=== PATIENT | male | born 1960 | race Caucasian/White ===

== ENCOUNTER 2022-11-28 17:57 | Outpatient (RCR) | payer OTHER, SELFPAY | END 2022-12-23 23:59 | disposition home or self-care (01) | LOC: MM 17:57 | PROVIDERS: PCP Internal Medicine; Visit Provider Internal Medicine | DX: Z51.81 Encounter for therapeutic drug level monitoring (principal); Z79.01 Long term (current) use of anticoagulants ==

== ENCOUNTER 2022-12-11 10:38 | Emergency (ER) | payer OTHER, SELFPAY ==
[2022-12-11 10:43] VITALS: BP 168/90; PULSE 70; RESP 20; TEMP 37.1; O2SAT 95; BMI 38.4
--- NOTE | 2022-12-11 10:49 | ED.BACK1 ---
HPI - Back Pain/Injury General Chief Complaint: Back Pain/Injury Stated Complaint: LOWER BACK INJURY Time Seen by Provider: 12/11/22 10:49 Source: patient Mode of arrival: walk-in History of Present Illness HPI Narrative: patient's here with pain in his lower lumbar area. He had a fall down is on stairs at home on Monday. He said he did not have any discomfort at all on Monday. Today he said when he got out of bed he had severe pain in his lower lumbar area in the midline that radiates into his buttock but no further. There is no bowel or bladder incontinence. There is no loss of feeling. He's not had previous back surgery or degenerative changes. He did not take any medication. He does have a local doctor. He does not have any other pain or discomfort today. Related Data Home Medications Medication Instructions Recorded Confirmed alprazolam 1 mg tablet 0.5 mg PO BID 12/11/22 12/11/22 amlodipine 10 mg tablet 10 mg PO DAILY 12/11/22 12/11/22 citalopram 40 mg tablet 40 mg PO DAILY 12/11/22 12/11/22 clindamycin phosphate 1 % topical 1 applic topical DAILY 12/11/22 12/11/22 solution fenofibrate nanocrystallized 145 145 mg PO DAILY 12/11/22 12/11/22 mg tablet losartan 50 mg tablet 50 mg PO DAILY 12/11/22 12/11/22 metoprolol tartrate 100 mg tablet 100 mg PO Q12H 12/11/22 12/11/22 simvastatin 80 mg tablet 80 mg PO DAILY 12/11/22 12/11/22 tamsulosin 0.4 mg capsule 0.4 mg PO Q24H 12/11/22 12/11/22 warfarin 7.5 mg tablet 7.5 mg PO DAILY 12/11/22 12/11/22 Allergies Allergy/AdvReac Type Severity Reaction Status Date / Time IV CONTRAST Allergy Severe Uncoded 12/11/22 10:48 Exam Narrative Exam Narrative: well-hydrated large showman weighs approximately 260 pounds. Moves about cautiously but is able to sit bedside to complete examination. He's awake alert HEENT shows no evidence of craniofacial trauma or injury cervical spine range of motion normal. Chest shows no chest wall tenderness or rib tenderness to palpation. respiratory pattern rate are normal lungs are clear. Back and pelvis inspection shows no bruising contusion or ecchymosis. No evidence of shingles or skin lesions. Extremities show no hematomas or bruises or tenderness to palpation. There are Neuro deep tendon reflexes at patella are two over four bilaterally. Extensor hallucis longus function is normal bilaterally. Achilles jerk reflexes normal and symmetrical bilaterally. Negative straight leg raising. Constitutional Vital Signs - 24 hr 12/11/22 10:43 Temperature 98.7 F Pulse Rate [Monitor] 70 Respiratory Rate 20 Blood Pressure [Right Arm] 168/90 H Pulse Oximetry 95 Oxygen Delivery Method Room Air Course Vital Signs Vital signs: Vital Signs Temperature 98.7 F 12/11/22 10:43 Pulse Rate 70 12/11/22 10:43 Respiratory Rate 20 12/11/22 10:43 Blood Pressure 168/90 H 12/11/22 10:43 Pulse Oximetry 95 12/11/22 10:43 Oxygen Delivery Method Room Air 12/11/22 10:43 Temperature 98.7 F 12/11/22 10:43 Pulse Rate 70 12/11/22 10:43 Respiratory Rate 20 12/11/22 10:43 Blood Pressure 168/90 H 12/11/22 10:43 Pulse Oximetry 95 12/11/22 10:43 Oxygen Delivery Method Room Air 12/11/22 10:43 MDM - Back Pain/Injury MDM Narrative Medical decision making narrative: patient's CT scan does not show any acute fracture or lytic lesions. Findings are consistent with degenerative disc disease in his lower lumbar area. He'll be placed on NSAIDs and muscle relaxants following up with primary care doctor Discharge Plan Discharge Chief Complaint: Back Pain/Injury Clinical Impression: Strain of lumbar region Patient Disposition: Home, Self-Care Time of Disposition Decision: 11:55 Prescriptions / Home Meds: No Action alprazolam 1 mg tablet 0.5 mg PO BID amlodipine 10 mg tablet 10 mg PO DAILY citalopram 40 mg tablet 40 mg PO DAILY clindamycin phosphate 1 % solution 1 applic topical DAILY fenofibrate nanocrystallized 145 mg tablet 145 mg PO DAILY losartan 50 mg tablet 50 mg PO DAILY metoprolol tartrate 100 mg tablet 100 mg PO Q12H simvastatin 80 mg tablet 80 mg PO DAILY tamsulosin 0.4 mg capsule 0.4 mg PO Q24H warfarin 7.5 mg tablet 7.5 mg PO DAILY Stand Alone Forms: Portal Instructions Referrals: Shaikh Galvin MD [Primary Care Provider] - 1 week
--- NOTE | 2022-12-11 10:50 | CT_ITS ---
The [address] [address] Patient Name: DRAKE MARTINEZ MRN: [id number] date: 1960 Sex: M Assigned Patient Location: ER Current Patient Location: ED.MAIN Accession/Order Number: [id number] Exam Date: 12/11/2022 11:05 Report Date: 12/11/2022 11:40 At the request of: KERRY PICKARD Procedure: CT lumbar spine wo con EXAMINATION: CT lumbar spine wo con CLINICAL HISTORY: Back pain status post fall 4 days ago TECHNIQUE: Spiral, high resolution axial images were obtained from the thoracolumbar junction to the sacrum with sagittal and coronal planar reconstructions. COMPARISON: None. RESULT: LUMBAR: Counting reference: Lumbosacral junction. For the purposes of this report, L4-5 is considered the level of the iliac crest and assume there are 5 lumbar-type vertebrae. Anatomic variant: None. Alignment: Lumbar lordosis is maintained. Vertebral body heights are maintained. Mild loss of disc is at L5-S1, otherwise disc spaces are within normal limits. Bone marrow / fracture: No evidence of a lytic or blastic process in the visualized spine. No evidence of acute or chronic fracture. Paraspinal soft tissues: The paraspinal soft tissues planes are maintained. Multilevel degenerative changes, most prominent at L4-L5 and L5-S1. Sacrum and iliac wings: The visualized sacrum and iliac wings are within normal limits. Diffuse subcutaneous edema.. IMPRESSION: No acute fracture or traumatic subluxation. Degenerative changes most prominent at L4-L5 and L5-S1. Electronically authenticated by: TIANA THORNTON Date: 12/11/2022 11:40
[2022-12-11] MEDS: HYDROMORPHONE HCL 1 MG/ML CARTRIDGE IM (12:11)
[2022-12-11 12:18] VITALS: BP 155/96
== END 2022-12-11 12:20 | disposition home or self-care (01) ==
PROVIDERS: Emergency Provider Emergency Medicine Emergency Medical Services; PCP Internal Medicine
DX: S39.012A Strain of muscle, fascia and tendon of lower back, initial encounter (principal); W10.9XXA Fall (on) (from) unspecified stairs and steps, initial encounter; Z79.899 Other long term (current) drug therapy; Z79.01 Long term (current) use of anticoagulants
CPT/HCPCS: 72131; 96372; 99285; J1170

== ENCOUNTER 2022-12-28 15:21 | Outpatient (RCR) | payer OTHER, SELFPAY | END 2023-01-23 16:47 | disposition home or self-care (01) | LOC: MM 15:21 | PROVIDERS: PCP Internal Medicine; Visit Provider Internal Medicine | DX: Z51.81 Encounter for therapeutic drug level monitoring (principal); Z79.01 Long term (current) use of anticoagulants ==

== ENCOUNTER 2023-01-09 12:29 | Outpatient (OUT) | payer OTHER, SELFPAY ==
--- NOTE | 2023-01-09 13:30 | MR_ITS ---
[address] [address] Patient Name: DRAKE MARTINEZ MRN: [id number] date: 1960 Sex: M Assigned Patient Location: MRI Current Patient Location: MRI Accession/Order Number: [id number] Exam Date: 01/09/2023 13:30 Report Date: 01/09/2023 20:14 At the request of: CHOLO RUDD Procedure: MR lumbar spine wo con EXAMINATION: MR lumbar spine wo con HISTORY: Low back pain M54.50 COMPARISON: No relevant comparison available. TECHNIQUE: A variety of imaging planes and parameters were utilized for visualization of suspected pathology. FINDINGS: For the purposes of numbering, sagittal T2 image # 8 extends from the T11 vertebral body superiorly to the S3 level inferiorly. PARASPINAL AREA: Normal with no visible mass. BONES: Normal alignment with no acute fracture or spondylolisthesis. Areas of signal abnormality L4 and L5 vertebral bodies. Hemangiomas are suspected. CORD/CAUDA EQUINA: Normal caliber, contour, and signal intensity. There is heterogeneous appearance of the thecal sac, indeterminate. DISC LEVELS: 12-L1: No significant disc/facet abnormality, spinal stenosis, or foraminal stenosis. L1-L2: Early degenerative disc disease is present without focal protrusion or neural impingement. L2-L3: Early degenerative disc disease is present without focal protrusion or neural impingement. L3-L4: Early degenerative disc disease is present without focal protrusion or neural impingement. L4-L5: Disc desiccation. Moderate facet osteoarthropathy. No central or foraminal stenosis L5-S1: Moderate disc space narrowing and disc desiccation. Posterior central disc herniation the protrusion type extending posteriorly up to 3.5 mm. Bilateral facet osteoarthropathy. No central canal stenosis. Mild right foraminal stenosis MR/MR lumbar spine wo con IMPRESSION: Discogenic changes most significant at L5-S1 where there is mild right foraminal stenosis Electronically authenticated by: TOBIAS BALDERAS Date: 01/09/2023 20:14
== END 2023-01-09 12:30 | disposition home or self-care (01) ==
LOC: MRI 12:30
PROVIDERS: PCP Family Medicine; Visit Provider Family Medicine
DX: M54.50 Low back pain, unspecified (principal); M48.061 Spinal stenosis, lumbar region without neurogenic claudication
CPT/HCPCS: 72148

== ENCOUNTER 2023-01-24 09:00 | Outpatient (RCR) | payer OTHER, SELFPAY | END 2023-02-23 17:18 | disposition home or self-care (01) | LOC: MM 09:00 | PROVIDERS: PCP Family Medicine; Visit Provider Internal Medicine | DX: Z51.81 Encounter for therapeutic drug level monitoring (principal); Z79.01 Long term (current) use of anticoagulants | CPT/HCPCS: 85610; G0463 ==

== ENCOUNTER 2023-02-11 20:38 | Emergency (ER) | payer OTHER, SELFPAY ==
--- NOTE | 2023-02-11 20:30 | ECG_ITS ---
The [facility] Test Date: 2023-02-11 Pat Name: DRAKE MARTINEZ Department: Room: - Gender: Male [employer]ive[employer]: : 1960 Requested By: CHOLO RUDD Order Number: [id number] Reading MD: CHOLO RUDD Measurements Intervals [place] Rate: 56 P: 30 SC: 198 QRS: 43 QRSD: 86 T: 41 QT: 418 QTc: 408 Interpretive Statements 1100 Sinus rhythm 3114 Cannot rule out anterior myocardial infarction, age undetermined 8102 Low QRS voltage in chest leads 9150 abnormal ECG No previous ECG available for comparison Electronically Signed On 02-15-2023 6:59:45 EDT by CHOLO RUDD
[2023-02-11 20:42] VITALS: BP 155/83; PULSE 62; RESP 18; TEMP 36.4; O2SAT 96; BMI 39.9
--- NOTE | 2023-02-11 21:06 | ED.LOWEXI1 ---
HPI - Extremity Injury (Lower) General Chief Complaint: Extremity Injury, Lower Stated Complaint: Bilateral Edema Legs Time Seen by Provider: 02/11/23 21:06 Source: patient Mode of arrival: walk-in Limitations: no limitations Related Data Home Medications Medication Instructions Recorded Confirmed alprazolam 1 mg tablet 0.5 mg PO BID 12/11/22 02/11/23 amlodipine 10 mg tablet 10 mg PO DAILY 12/11/22 02/11/23 citalopram 40 mg tablet 40 mg PO DAILY 12/11/22 02/11/23 clindamycin phosphate 1 % topical 1 applic topical DAILY 12/11/22 02/11/23 solution fenofibrate nanocrystallized 145 145 mg PO DAILY 12/11/22 02/11/23 mg tablet losartan 50 mg tablet 50 mg PO DAILY 12/11/22 02/11/23 metoprolol tartrate 100 mg tablet 100 mg PO Q12H 12/11/22 02/11/23 simvastatin 80 mg tablet 80 mg PO DAILY 12/11/22 02/11/23 tamsulosin 0.4 mg capsule 0.4 mg PO Q24H 12/11/22 02/11/23 warfarin 7.5 mg tablet 7.5 mg PO DAILY 12/11/22 02/11/23 Allergies Allergy/AdvReac Type Severity Reaction Status Date / Time IV CONTRAST Allergy Severe Uncoded 02/11/23 20:46 PFSH PFSH Social History Smoking status: Former smoker Exam Constitutional Vital Signs, click to edit/add: Last Vital Signs Temp 97.6 F 02/11/23 20:42 Pulse 62 02/11/23 20:42 Resp 18 02/11/23 20:42 BP 155/83 H 02/11/23 20:42 Pulse Ox 96 02/11/23 20:42 O2 Del Method Room Air 02/11/23 20:42 Course Vital Signs Vital signs: Vital Signs Temperature 97.6 F 02/11/23 20:42 Pulse Rate 62 02/11/23 20:42 Respiratory Rate 18 02/11/23 20:42 Blood Pressure 155/83 H 02/11/23 20:42 Pulse Oximetry 96 02/11/23 20:42 Oxygen Delivery Method Room Air 02/11/23 20:42 Temperature 97.6 F 02/11/23 20:42 Pulse Rate 62 02/11/23 20:42 Respiratory Rate 18 02/11/23 20:42 Blood Pressure 155/83 H 02/11/23 20:42 Pulse Oximetry 96 02/11/23 20:42 Oxygen Delivery Method Room Air 02/11/23 20:42 Discharge Plan Discharge Chief Complaint: Extremity Injury, Lower Prescriptions / Home Meds: No Action alprazolam 1 mg tablet 0.5 mg PO BID amlodipine 10 mg tablet 10 mg PO DAILY citalopram 40 mg tablet 40 mg PO DAILY clindamycin phosphate 1 % solution 1 applic topical DAILY fenofibrate nanocrystallized 145 mg tablet 145 mg PO DAILY losartan 50 mg tablet 50 mg PO DAILY metoprolol tartrate 100 mg tablet 100 mg PO Q12H simvastatin 80 mg tablet 80 mg PO DAILY tamsulosin 0.4 mg capsule 0.4 mg PO Q24H warfarin 7.5 mg tablet 7.5 mg PO DAILY Referrals: Jonatan Ponce MD [Primary Care Provider] - 1 week
[2023-02-11 21:13] VITALS: RESP 16
[2023-02-11 21:32] LABS: Prothrombin Time 31.8 sec (9.0-11.6)
[2023-02-11 21:44] LABS: Alanine Aminotransferase 9 U/L (16-63); Albumin Globulin Ratio 1.3; Albumin Level 3.8 g/dL (3.4-5.0); Alkaline Phosphatase 51 U/L (46-116); Anion Gap 7.9; Aspartate Amino Transferase 17 U/L (15-37); BUN Creatinine Ratio 14.3; Bilirubin Total 0.3 mg/dL (0.2-1.0); Calcium 8.6 mg/dL (8.5-10.1); Carbon Dioxide 31.5 mmol/L (21.0-32.0); Chloride 102 mmol/L (98-107); Estimated GFR (African America >60 (>=60); Estimated GFR (Non-African Ame 54 (>=60); Glucose 139 mg/dL (74-106); Potassium 3.4 mmol/L (3.5-5.1); Sodium 138 mmol/L (136-145); Total Protein 6.8 g/dL (6.4-8.2)
[2023-02-11 21:49] LABS: Basophils Percent Auto 0.4 % (0.2-2.0); Eosinophils Absolute Auto 0.2 10^3/uL (0.0-0.7); Eosinophils Percent Auto 3.6 % (0.9-7.0); Hemoglobin 13.7 g/dL (14.0-18.0); Immature Granulocytes Abs Auto 0.02 10^3/uL (0.00-0.03); Immature Granulocytes Pct Auto 0.4 % (0.0-0.5); Lymphocytes Absolute Auto 1.5 10^3/uL (1.2-3.8); Lymphocytes Percent Auto 32.1 % (20.5-60.0); Mean Corpuscular HGB Conc 34.3 g/dL (29.9-35.2); Mean Corpuscular Hemoglobin 30.6 pg (25.9-34.0); Mean Corpuscular Volume 89.5 fL (80.0-94.0); Mean Platelet Volume 9.6 fL (9.5-13.5); Monocytes Absolute Auto 0.7 10^3/uL (0.3-0.8); Monocytes Percent Auto 14.3 % (1.7-12.0); Neutrophils Absolute Auto 2.3 10^3/uL (1.4-6.5); Neutrophils Percent Auto 49.2 % (43.0-75.0); Platelet Count 227 10^3/uL (150-450); Red Blood Count 4.47 10^6/uL (4.70-6.10); Red Cell Distribution Width 13.4 % (11.0-15.0); White Blood Count 4.7 10^3/uL (4.0-11.0)
--- NOTE | 2023-02-11 22:04 | ED_ITS ---
HPI - General Adult General Chief complaint: Extremity Injury, Lower Stated complaint: Bilateral Edema Legs Time Seen by Provider: 02/11/23 21:06 Source: patient Mode of arrival: walk-in Limitations: no limitations History of Present Illness HPI narrative: Versus emergency Department complaining of bilateral lower extremity edema. He states she's had this issue for several months but the last 3 weeks has gotten yvonne harris. He states 3 days ago he started noticing a rash to bilateral medial ankles. The rash is now expanding proximally. He denies any fever, chills. He denies any trauma. He denies any pain. He states they have had anything like this before. Patient is on Coumadin. Last INR was checked was 2 days ago when he was fine. Patient Denies any chest, shortness of breath. He denies any cough, fever. Patient denies being sick recently with any nausea, vomiting, diarrhea, constipation, or abdominal pain. He denies any flank pain, hematuria, dysuria. Related Data Home Medications Medication Instructions Recorded Confirmed alprazolam 1 mg tablet 0.5 mg PO BID 12/11/22 02/11/23 amlodipine 10 mg tablet 10 mg PO DAILY 12/11/22 02/11/23 citalopram 40 mg tablet 40 mg PO DAILY 12/11/22 02/11/23 clindamycin phosphate 1 % topical 1 applic topical DAILY 12/11/22 02/11/23 solution fenofibrate nanocrystallized 145 145 mg PO DAILY 12/11/22 02/11/23 mg tablet losartan 50 mg tablet 50 mg PO DAILY 12/11/22 02/11/23 metoprolol tartrate 100 mg tablet 100 mg PO Q12H 12/11/22 02/11/23 simvastatin 80 mg tablet 80 mg PO DAILY 12/11/22 02/11/23 tamsulosin 0.4 mg capsule 0.4 mg PO Q24H 12/11/22 02/11/23 warfarin 7.5 mg tablet 7.5 mg PO DAILY 12/11/22 02/11/23 Previous Rx's Medication Instructions Recorded cephalexin 500 mg capsule 500 mg PO TID 7 days #21 caps 02/11/23 furosemide 20 mg tablet (Lasix) 20 mg PO DAILY #3 tabs 02/11/23 Allergies Allergy/AdvReac Type Severity Reaction Status Date / Time IV CONTRAST Allergy Severe Uncoded 02/11/23 20:46 Review of Systems ROS Status of ROS 10 or more systems reviewed and unremarkable except as noted in history and below [facility] Social History Smoking status: Former smoker Exam Narrative Exam Narrative: Nurses notes and vital signs reviewed and patient is not hypoxic. General: Nontoxic, Well-appearing and in no apparent distress. Skin: Warm, dry, no pallor noted. No Rash Head: Normocephalic, atraumatic. Neck: Supple, non-tender. Eye: Pupils are equal, round and EOMI. No scleral icterus. Ears, Nose, Mouth, and Throat: TM clear, no posterior oropharynx erythema or nasal mucosal hypertrophy, uvula is mid-line Oral mucosa is moist Cardiovascular: Regular Rate and Rhythm without murmur, gallop or rub. Respiratory: No accessory muscle use or respiratory distress. Lungs are clear to auscultation, no wheezing, rales or rhonchi Chest Wall: no tenderness Back: No midline thoracic or lumbar vertebral tenderness. No CVA tenderness Musculoskeletal: normal ROM, no calf or popliteal tenderness, +2 Bilateral lower extremity edema/swelling,Bilateral erythema to the medial aspect of bilateral lower extremities. erythematous and warm rash, blanching, nonbullous. DP +2, tuberculosis +2, capillary refill iis brisk. GI: Abdomen is soft, non-distended. Normal bowel sounds. No masses appreciated. No tenderness to palpation. No rebound, guarding, or rigidity noted. Neurological: A&O x4. No cranial nerve dysfunction observed. No truncal ataxia. Moves all extremities. Sensation intact. Psychiatric: Cooperative and interactive. Normal mood and affect. Constitutional Vital Signs, click to edit/add: Last Vital Signs Temp 97.6 F 02/11/23 20:42 Pulse 62 02/11/23 20:42 Resp 16 02/11/23 21:13 BP 155/83 H 02/11/23 20:42 Pulse Ox 96 02/11/23 20:42 O2 Del Method Room Air 02/11/23 20:42 Course Vital Signs Vital signs: Vital Signs Temperature 97.6 F 02/11/23 20:42 Pulse Rate 62 02/11/23 20:42 Respiratory Rate 18 02/11/23 20:42 Blood Pressure 155/83 H 02/11/23 20:42 Pulse Oximetry 96 02/11/23 20:42 Oxygen Delivery Method Room Air 02/11/23 20:42 Temperature 97.6 F 02/11/23 20:42 Pulse Rate 62 02/11/23 20:42 Respiratory Rate 16 02/11/23 21:13 Blood Pressure 155/83 H 02/11/23 20:42 Pulse Oximetry 96 02/11/23 20:42 Oxygen Delivery Method Room Air 02/11/23 20:42 Medical Decision Making MDM Narrative Medical decision making narrative: Labs studies were done. Patient given a prescription for 3 days of Lasix, and Keflex. He is advised to monitor his INR is 2 days after starting on the antibiotic. Patient is advised to use compression stockings. He is nontoxic, stable for outpatient follow-up and treatment. At this time the patient is without objective evidence of an acute process requiring hospitalization or inpatient management. The patient has remained hemodynamically stable. No additional indication for emergent studies at this time. I answered all questions. Discussed discharge instructions including standard anticipatory guidance and what should prompt a return to the emergency department, including if they get worse are not getting better or develops any new or concerning symptoms. I've given them specific time frame in which to follow-up, and who to follow-up with. The patient demonstrates understanding. Patient is nontoxic and stable for discharge with outpatient follow-up. This note was created with the assistance of a speech recognition program. Although the intention is to generate documents that actually reflects the content of the visit, no guarantees can be provided that every mistake has been identified and corrected by editing. Lab Data Lab results reviewed: Yes I reviewed the patient's lab results Labs: Lab Results 02/11/23 Range/Units 20:50 WBC 4.7 (4.0-11.0) 10^3/uL RBC 4.47 L (4.70-6.10) 10^6/uL Hgb 13.7 L (14.0-18.0) g/dL Hct 40.0 L (42.0-54.0) % MCV 89.5 (80.0-94.0) fL MCH 30.6 (25.9-34.0) pg MCHC 34.3 (29.9-35.2) g/dL RDW 13.4 (11.0-15.0) % Plt Count 227 (150-450) 10^3/uL MPV 9.6 (9.5-13.5) fL Neut % (Auto) 49.2 (43.0-75.0) % Lymph % (Auto) 32.1 (20.5-60.0) % [place] % (Auto) 14.3 H (1.7-12.0) % Eos % (Auto) 3.6 (0.9-7.0) % Baso % (Auto) 0.4 (0.2-2.0) % Neut # (Auto) 2.3 (1.4-6.5) 10^3/uL Lymph # (Auto) 1.5 (1.2-3.8) 10^3/uL [place] # (Auto) 0.7 (0.3-0.8) 10^3/uL Eos # (Auto) 0.2 (0.0-0.7) 10^3/uL Baso # (Auto) 0.0 (0.0-0.1) 10^3/uL Abs Immat Gran (auto) 0.02 (0.00-0.03) 10^3/uL Imm/Tot Granulo (auto) 0.4 (0.0-0.5) % PT 31.8 H (9.0-11.6) sec INR 3.20 Sodium 138 (136-145) mmol/L Potassium 3.4 L (3.5-5.1) mmol/L Chloride 102 (98-107) mmol/L Carbon Dioxide 31.5 (21.0-32.0) mmol/L Anion Gap 7.9 BUN 19.0 H (7.0-18.0) mg/dL Creatinine 1.33 H (0.70-1.30) mg/dL Est GFR ( Amer) >60 (>=60) Est GFR (Non-Af Amer) 54 L (>=60) BUN/Creatinine Ratio 14.3 Glucose 139 H (74-106) mg/dL Calcium 8.6 (8.5-10.1) mg/dL Total Bilirubin 0.3 (0.2-1.0) mg/dL AST 17 (15-37) U/L ALT 9 L (16-63) U/L Alkaline Phosphatase 51 (46-116) U/L NT-Pro-B Natriuret Pep 114.0 (<=900.0) pg/mL Total Protein 6.8 (6.4-8.2) g/dL Albumin 3.8 (3.4-5.0) g/dL Globulin 3.0 g/dL Albumin/Globulin Ratio 1.3 Discharge Plan Discharge Chief Complaint: Extremity Injury, Lower Clinical Impression: Bilateral lower extremity edema, Cellulitis Patient Disposition: Home, Self-Care Time of Disposition Decision: 21:56 Condition: Good Mode of Transportation: Private Vehicle Prescriptions / Home Meds: New furosemide [Lasix] 20 mg tablet 20 mg PO DAILY Qty: 3 0RF cephalexin 500 mg capsule 500 mg PO TID 7 Days Qty: 21 0RF No Action alprazolam 1 mg tablet 0.5 mg PO BID amlodipine 10 mg tablet 10 mg PO DAILY citalopram 40 mg tablet 40 mg PO DAILY clindamycin phosphate 1 % solution 1 applic topical DAILY fenofibrate nanocrystallized 145 mg tablet 145 mg PO DAILY losartan 50 mg tablet 50 mg PO DAILY metoprolol tartrate 100 mg tablet 100 mg PO Q12H simvastatin 80 mg tablet 80 mg PO DAILY tamsulosin 0.4 mg capsule 0.4 mg PO Q24H warfarin 7.5 mg tablet 7.5 mg PO DAILY Instructions: Cellulitis (ED), Leg Edema (ED) Stand Alone Forms: Portal Instructions Referrals: Jonatan Ponce MD [Primary Care Provider] - 1 week
== END 2023-02-11 22:19 | disposition home or self-care (01) ==
PROVIDERS: Emergency Provider Emergency Medicine; PCP Family Medicine
DX: L03.116 Cellulitis of left lower limb (principal); L03.115 Cellulitis of right lower limb; R60.0 Localized edema; Z79.01 Long term (current) use of anticoagulants; Z79.899 Other long term (current) drug therapy; Z87.891 Personal history of nicotine dependence
CPT/HCPCS: 36415; 80053; 83880; 85025; 85610; 93005; 99283

== ENCOUNTER 2023-02-24 08:26 | Outpatient (RCR) | payer OTHER, SELFPAY | END 2023-03-24 16:34 | disposition home or self-care (01) | LOC: MM 08:26 | PROVIDERS: PCP Family Medicine; Visit Provider Internal Medicine | DX: Z51.81 Encounter for therapeutic drug level monitoring (principal); Z79.01 Long term (current) use of anticoagulants | CPT/HCPCS: 85610; G0463 ==

== ENCOUNTER 2023-03-02 09:01 | Outpatient (OUT) | payer OTHER, SELFPAY ==
--- NOTE | 2023-03-02 09:06 | MR_ITS ---
The [address] [address] Patient Name: DRAKE MARTINEZ MRN: [id number] date: 1960 Sex: M Assigned Patient Location: MRI Current Patient Location: MRI Accession/Order Number: [id number] Exam Date: 03/02/2023 09:15 Report Date: 03/02/2023 16:38 At the request of: CHOLO RUDD Procedure: MR lumbar spine w con EXAM: MRI lumbar spine with contrast, 03/02/2023. HISTORY: Abnormality of lumbar spine seen on prior MRI of lumbar spine. Postcontrast imaging was requested. COMPARISON: MRI lumbar spine without contrast, 01/12/2023. TECHNIQUE: Sagittal T1 fat saturation and axial T1 images obtained. Postcontrast axial T1 and sagittal T1 fat saturation images obtained. FINDINGS: There is no pathologic enhancement in the conus medullaris. No pathologic enhancement in the cauda equina. No enhancing lesions in the thecal sac. No epidural space masses or fluid collections. No paraspinal mass. No pathologic enhancement in the osseous structures of the lumbar spine or sacrum. MR/MR lumbar spine w con IMPRESSION: No abnormal enhancement identified in the thecal sac. The findings suggested on the prior exam are related to normal CSF pulsation. There is no pathologic enhancement in the conus medullaris or cauda equina. No enhancing masses. Electronically authenticated by: XIOMARA ESTRADA Date: 03/02/2023 16:38
== END 2023-03-02 09:02 | disposition home or self-care (01) ==
LOC: MRI 09:01
PROVIDERS: PCP Family Medicine; Visit Provider Family Medicine
DX: M54.50 Low back pain, unspecified (principal)
CPT/HCPCS: 72149; A9575

== ENCOUNTER 2023-03-27 02:26 | Outpatient (RCR) | payer OTHER, SELFPAY | END 2023-04-25 17:35 | disposition home or self-care (01) | LOC: MM 02:26 | PROVIDERS: PCP Family Medicine; Visit Provider Internal Medicine | DX: Z51.81 Encounter for therapeutic drug level monitoring (principal); Z79.01 Long term (current) use of anticoagulants | CPT/HCPCS: 85610; G0463 ==

== ENCOUNTER 2023-04-26 00:39 | Outpatient (RCR) | payer OTHER, SELFPAY | END 2023-05-25 16:45 | disposition home or self-care (01) | LOC: MM 00:39 | PROVIDERS: PCP Family Medicine; Visit Provider Internal Medicine | DX: Z51.81 Encounter for therapeutic drug level monitoring (principal); Z79.01 Long term (current) use of anticoagulants | CPT/HCPCS: 85610; G0463 ==

== ENCOUNTER 2023-05-26 09:02 | Outpatient (RCR) | payer OTHER, SELFPAY | END 2023-06-23 15:12 | disposition home or self-care (01) | LOC: MM 09:02 | PROVIDERS: PCP Family Medicine; Visit Provider Internal Medicine | DX: Z51.81 Encounter for therapeutic drug level monitoring (principal); Z79.01 Long term (current) use of anticoagulants; I82.409 Acute embolism and thrombosis of unspecified deep veins of unspecified lower extremity | CPT/HCPCS: 85610; G0463 ==

== ENCOUNTER 2023-06-26 00:45 | Outpatient (RCR) | payer OTHER, SELFPAY | END 2023-07-26 15:57 | disposition home or self-care (01) | LOC: MM 00:45 | PROVIDERS: PCP Family Medicine; Visit Provider Internal Medicine | DX: Z51.81 Encounter for therapeutic drug level monitoring (principal); Z79.01 Long term (current) use of anticoagulants; I82.401 Acute embolism and thrombosis of unspecified deep veins of right lower extremity ==

== ENCOUNTER 2023-07-27 01:31 | Outpatient (RCR) | payer OTHER, SELFPAY | END 2023-08-24 17:10 | disposition home or self-care (01) | LOC: MM 01:31 | PROVIDERS: PCP Family Medicine; Visit Provider Internal Medicine | DX: Z51.81 Encounter for therapeutic drug level monitoring (principal); Z79.01 Long term (current) use of anticoagulants; I82.401 Acute embolism and thrombosis of unspecified deep veins of right lower extremity ==

== ENCOUNTER 2023-08-25 01:04 | Outpatient (RCR) | payer OTHER, SELFPAY | END 2023-09-22 13:02 | disposition home or self-care (01) | LOC: MM 01:04 | PROVIDERS: PCP Family Medicine; Visit Provider Internal Medicine | DX: Z51.81 Encounter for therapeutic drug level monitoring (principal); Z79.01 Long term (current) use of anticoagulants; I82.401 Acute embolism and thrombosis of unspecified deep veins of right lower extremity ==

== ENCOUNTER 2023-08-25 08:32 | Outpatient (OUT) | payer OTHER, SELFPAY ==
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
[2023-08-25 09:49] LABS: Eosinophils Absolute Auto 0.2 10^3/uL (0.0-0.7); Hemoglobin 14.5 g/dL (14.0-18.0); Neutrophils Absolute Auto 3.3 10^3/uL (1.4-6.5); White Blood Count 6.5 10^3/uL (4.0-11.0)
[2023-08-25 10:09] LABS: Estimated Average Glucose 120 mg/dL; Glycohemoglobin A1C 5.8 % (4.5-6.2)
[2023-08-25 10:11] LABS: Basophils Percent Auto 0.5 % (0.2-2.0); Eosinophils Percent Auto 2.6 % (0.9-7.0); Hematocrit 43.7 % (42.0-54.0); Immature Granulocytes Abs Auto 0.02 10^3/uL (0.00-0.03); Immature Granulocytes Pct Auto 0.3 % (0.0-0.5); Lymphocytes Absolute Auto 2.1 10^3/uL (1.2-3.8); Lymphocytes Percent Auto 31.6 % (20.5-60.0); Mean Corpuscular HGB Conc 33.2 g/dL (29.9-35.2); Mean Corpuscular Hemoglobin 30.5 pg (25.9-34.0); Mean Platelet Volume 9.5 fL (9.5-13.5); Monocytes Absolute Auto 0.9 10^3/uL (0.3-0.8); Monocytes Percent Auto 14.3 % (1.7-12.0); Neutrophils Percent Auto 50.7 % (43.0-75.0); Platelet Count 323 10^3/uL (150-450); Red Blood Count 4.75 10^6/uL (4.70-6.10); Red Cell Distribution Width 13.3 % (11.0-15.0)
[2023-08-25 10:52] LABS: Alanine Aminotransferase 23 U/L (16-63); Albumin Globulin Ratio 1.1; Albumin Level 3.6 g/dL (3.4-5.0); Alkaline Phosphatase 47 U/L (46-116); Anion Gap 12.1; Aspartate Amino Transferase 14 U/L (15-37); BUN Creatinine Ratio 21.8; Bilirubin Total 0.3 mg/dL (0.2-1.0); Calcium 9.3 mg/dL (8.5-10.1); Carbon Dioxide 28.8 mmol/L (21.0-32.0); Chloride 107 mmol/L (98-107); Chol HDL Ratio 4.8; Cholesterol 206 mg/dL (<=200); Estimated GFR (African America >60 (>=60); Estimated GFR (Non-African Ame >60 (>=60); Free T3 2.21 pg/mL (2.18-3.98); Globulin 3.4 g/dL; Glucose 102 mg/dL (74-106); HDL Cholesterol 43 mg/dL (40-60); Potassium 3.9 mmol/L (3.5-5.1); Sodium 144 mmol/L (136-145); Thyroid Stimulating Hormone 1.953 uIU/mL (0.358-3.740); Triglycerides 231 mg/dL (<=150); VLDL CHOLESTEROL 46.2 mg/dL
[2023-08-27 11:07] LABS: Insulin 13.8 uIU/mL (2.6-24.9)
[2023-08-28 16:20] LABS: Occult Blood Negative
== END 2023-08-25 08:33 | disposition home or self-care (01) ==
LOC: LAB 08:34
PROVIDERS: PCP Family Medicine; Visit Provider Family Medicine
DX: Z00.00 Encounter for general adult medical examination without abnormal findings (principal); E78.5 Hyperlipidemia, unspecified; R73.09 Other abnormal glucose; Z12.12 Encounter for screening for malignant neoplasm of rectum; E55.9 Vitamin D deficiency, unspecified
CPT/HCPCS: 36415; 80053; 80061; 82306; 83036; 83525; 84436; 84443; 84481; 85025; G0328

== ENCOUNTER 2023-09-25 03:13 | Outpatient (RCR) | payer OTHER, SELFPAY | END 2023-10-24 17:47 | disposition home or self-care (01) | LOC: MM 03:13 | PROVIDERS: PCP Family Medicine; Visit Provider Internal Medicine | DX: Z51.81 Encounter for therapeutic drug level monitoring (principal); Z79.01 Long term (current) use of anticoagulants; I82.401 Acute embolism and thrombosis of unspecified deep veins of right lower extremity ==

== ENCOUNTER 2023-10-25 04:33 | Outpatient (RCR) | payer OTHER, SELFPAY | END 2023-11-24 11:44 | disposition home or self-care (01) | LOC: MM 04:33 | PROVIDERS: PCP Family Medicine; Visit Provider Internal Medicine | DX: Z51.81 Encounter for therapeutic drug level monitoring (principal); Z79.01 Long term (current) use of anticoagulants; I82.401 Acute embolism and thrombosis of unspecified deep veins of right lower extremity | CPT/HCPCS: 85610; G0463 ==

== ENCOUNTER 2023-11-27 00:15 | Outpatient (RCR) | payer OTHER, SELFPAY | END 2023-12-22 10:16 | disposition home or self-care (01) | LOC: MM 00:15 | PROVIDERS: PCP Family Medicine; Visit Provider Internal Medicine | DX: Z51.81 Encounter for therapeutic drug level monitoring (principal); Z79.01 Long term (current) use of anticoagulants; I82.401 Acute embolism and thrombosis of unspecified deep veins of right lower extremity ==

== ENCOUNTER 2023-12-25 00:36 | Outpatient (RCR) | payer OTHER, SELFPAY | END 2024-01-24 09:36 | disposition home or self-care (01) | LOC: MM 00:36 | PROVIDERS: PCP Family Medicine; Visit Provider Internal Medicine | DX: Z51.81 Encounter for therapeutic drug level monitoring (principal); Z79.01 Long term (current) use of anticoagulants; I82.401 Acute embolism and thrombosis of unspecified deep veins of right lower extremity ==

== ENCOUNTER 2024-01-25 00:29 | Outpatient (RCR) | payer OTHER, SELFPAY | END 2024-02-23 09:17 | disposition home or self-care (01) | LOC: MM 00:29 | PROVIDERS: PCP Family Medicine; Visit Provider Internal Medicine | DX: Z51.81 Encounter for therapeutic drug level monitoring (principal); Z79.01 Long term (current) use of anticoagulants; I82.401 Acute embolism and thrombosis of unspecified deep veins of right lower extremity ==

== ENCOUNTER 2024-02-26 00:51 | Outpatient (RCR) | payer OTHER, SELFPAY | END 2024-03-25 23:51 | disposition home or self-care (01) | LOC: MM 00:51 | PROVIDERS: PCP Family Medicine; Visit Provider Internal Medicine | DX: Z51.81 Encounter for therapeutic drug level monitoring (principal); Z79.01 Long term (current) use of anticoagulants; I82.401 Acute embolism and thrombosis of unspecified deep veins of right lower extremity ==

== ENCOUNTER 2024-03-26 01:23 | Outpatient (RCR) | payer OTHER, SELFPAY | END 2024-04-25 23:29 | disposition home or self-care (01) | LOC: MM 01:23 | PROVIDERS: PCP Family Medicine; Visit Provider Internal Medicine | DX: Z51.81 Encounter for therapeutic drug level monitoring (principal); Z79.01 Long term (current) use of anticoagulants; I82.401 Acute embolism and thrombosis of unspecified deep veins of right lower extremity ==

== ENCOUNTER 2024-04-26 10:27 | Outpatient (RCR) | payer OTHER, SELFPAY | END 2024-05-25 23:59 | disposition home or self-care (01) | LOC: MM 10:27 | PROVIDERS: PCP Family Medicine; Visit Provider Internal Medicine | DX: Z51.81 Encounter for therapeutic drug level monitoring (principal); Z79.01 Long term (current) use of anticoagulants; I82.401 Acute embolism and thrombosis of unspecified deep veins of right lower extremity ==

== ENCOUNTER 2024-05-26 10:45 | Outpatient (RCR) | payer OTHER, SELFPAY | END 2024-06-25 09:57 | disposition home or self-care (01) | LOC: MM 10:45 | PROVIDERS: PCP Family Medicine; Visit Provider Internal Medicine | DX: Z51.81 Encounter for therapeutic drug level monitoring (principal); Z79.01 Long term (current) use of anticoagulants; I82.401 Acute embolism and thrombosis of unspecified deep veins of right lower extremity ==

== ENCOUNTER 2024-06-27 00:17 | Outpatient (RCR) | payer OTHER, SELFPAY | END 2024-07-26 15:03 | disposition home or self-care (01) | LOC: MM 00:17 | PROVIDERS: PCP Family Medicine; Visit Provider Internal Medicine | DX: Z51.81 Encounter for therapeutic drug level monitoring (principal); Z79.01 Long term (current) use of anticoagulants; I82.401 Acute embolism and thrombosis of unspecified deep veins of right lower extremity ==

== ENCOUNTER 2024-07-29 00:47 | Outpatient (RCR) | payer OTHER, SELFPAY | END 2024-08-23 10:49 | disposition home or self-care (01) | LOC: MM 00:47 | PROVIDERS: PCP Family Medicine; Visit Provider Internal Medicine | DX: Z51.81 Encounter for therapeutic drug level monitoring (principal); Z79.01 Long term (current) use of anticoagulants; I82.401 Acute embolism and thrombosis of unspecified deep veins of right lower extremity ==

== ENCOUNTER 2024-08-24 07:23 | Outpatient (RCR) | payer OTHER, SELFPAY | END 2024-09-20 10:11 | disposition home or self-care (01) | LOC: MM 07:23 | PROVIDERS: PCP Family Medicine; Visit Provider Internal Medicine | DX: Z51.81 Encounter for therapeutic drug level monitoring (principal); Z79.01 Long term (current) use of anticoagulants; I82.491 Acute embolism and thrombosis of other specified deep vein of right lower extremity ==

== ENCOUNTER 2024-09-24 01:56 | Outpatient (RCR) | payer OTHER, SELFPAY | END 2024-10-23 13:42 | disposition home or self-care (01) | LOC: MM 01:56 | PROVIDERS: PCP Family Medicine; Visit Provider Internal Medicine | DX: Z51.81 Encounter for therapeutic drug level monitoring (principal); Z79.01 Long term (current) use of anticoagulants; I82.491 Acute embolism and thrombosis of other specified deep vein of right lower extremity ==

== ENCOUNTER 2024-10-24 04:41 | Outpatient (RCR) | payer OTHER, SELFPAY | END 2024-11-23 07:10 | disposition home or self-care (01) | LOC: MM 04:41 | PROVIDERS: PCP Family Medicine; Visit Provider Internal Medicine | DX: Z51.81 Encounter for therapeutic drug level monitoring (principal); Z79.01 Long term (current) use of anticoagulants; I82.401 Acute embolism and thrombosis of unspecified deep veins of right lower extremity ==

== ENCOUNTER 2024-11-17 13:22 | Emergency (ER) | payer OTHER, SELFPAY ==
[2024-11-17 13:25] VITALS: BP 129/89; PULSE 56; TEMP 36.7; O2SAT 98; BMI 35.4
--- NOTE | 2024-11-17 13:39 | PC.NURSE ---
LFA to wrist swelling, skin intact and strong radial pulse, ice pack placed and wrapped for comfort while waiting in waiting room
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
== END 2024-11-17 14:25 | disposition home or self-care (01) ==
PROVIDERS: Emergency Provider Emergency Medicine; PCP Family Medicine
DX: S50.12XA Contusion of left forearm, initial encounter (principal); M79.632 Pain in left forearm; R22.32 Localized swelling, mass and lump, left upper limb
CPT/HCPCS: 73090; 73110; 99283

== ENCOUNTER 2024-11-24 07:38 | Outpatient (RCR) | payer OTHER, SELFPAY | END 2024-12-19 14:39 | disposition home or self-care (01) | LOC: MM 07:38 | PROVIDERS: PCP Family Medicine; Visit Provider Internal Medicine | DX: Z51.81 Encounter for therapeutic drug level monitoring (principal); Z79.01 Long term (current) use of anticoagulants; I82.401 Acute embolism and thrombosis of unspecified deep veins of right lower extremity ==

== ENCOUNTER 2025-04-18 10:44 | Outpatient (OUT) | payer OTHER, SELFPAY ==
--- OUTSIDE RECORDS SUMMARY | 2025-04-17 06:45 | XMS_ITS ---
Author Organization [facility] in [place] Address [address] [place] [address] Care Team Providers Care Closet Organizer Name Role Phone Prashanth Ponce Primary Care Provider Allergies Allergen (clinical drug ingredient) Drug/Non Drug Allergy documented on EMR Reaction Allergy Type Onset Date Status Information temporarily unavailable Contrast Dye (uncoded) Hives Allergy Active REASON FOR VISIT diet check #3 Medications Medication SIG (Take, Route, Frequency, Duration) Notes Start Date End Date Status Metoprolol Tartrate 100 mg TAKE 1 TABLET BY MOUTH TWICE DAILY WITH FOOD; Duration: 30 ActiveSimvastatin 20 mgTAKE 1 TABLET BY MOUTH IN THE EVENING; Duration: 30 days ActiverOPINIRole HCl 0.5 mgTAKE 1 TABLET BY MOUTH 1-3 HOURS BEFORE bedtime; Duration: 30ActiveTriamcinolone Acetonide 0.1 %1 application Externally Twice a day; Duration: ctiveTamsulosin HCl 0.4 mgTAKE 1 CAPSULE BY MOUTH ONCE DAILY; Duration: 90ActiveKetoconazole 2 %APPLY TO THE AFFECTED AREA(S) DAILY External; Duration: 30 daysActivehydrOXYzine HCl 25 MG 1 tablet as needed Orally tid; Duration: 10 days best is 1 in am and 2 at hs - 3/day max 02/23/2024ctiveLosartan Potassium 50 mgTAKE 1 TABLET BY MOUTH ONCE DAILY; Duration: 30ActiveFenofibrate 145 mgTAKE 1 TABLET BY MOUTH EVERY DAY; Duration: 30ActiveClindamycin Phosphate 1 %APPLY TO THE AFFECTED AREA(S) TWICE DAILY External; Duration: 30 daysActiveAdipex-P 37.5 MG1 tablet before breakfast Orally Once a day5ActiveamLODIPine Besylate 10 mgTAKE 1 TABLET BY MOUTH ONCE DAILY; Duration: 30ActiveALPRAZolam 1 mgTAKE 1/2 (ONE-HALF) TO 1 (ONE) TABLET BY MOUTH TWICE DAILY; Duration: 5ActiveCitalopram Hydrobromide 40 mgTAKE 1 TABLET BY MOUTH ONCE DAILY; Duration: 90ActiveWarfarin Sodium 5 MG1 tablet Orally Once a day; Duration: 30 daysCoumadin ClinicActiveWarfarin Sodium 7.5 mgTAKE 1 TABLET BY MOUTH ONCE DAILY; Duration: 30Active Social History Tobacco Use: Social History Observation Description Date Details (start date - stop date) Former Smoker 06/27/1976 - 06/27/1985 Tobacco Use/Smoking Question Answer Notes Patient is a former smoker When did you start smoking?06/27/1976When did you stop smoking?06/27/1985How long has it been since you last smoked?> 10 years Vital Signs Weight 252.4 lbs 04/17/2025 Height 69 in 04/17/2025 Blood pressure systolic 142 mm Hg 04/17/20 25 Blood pressure diastolic 84 mm Hg 025 BMI 37.27 kg/m2 04/17/2025 Encounters Encounter Location Date Provider Diagnosis [address] [address] 04/17/2025 Prashanth Hoy Hodgkin lymphoma C81 .90 ; Well adult Z00.00 and Low back pain, unspecified M54.50 Assessments Encounter Date Diagnosis (ICD Code) Assessment Notes Treatment Notes Treatment Clinical Notes Section Notes 04/17/2025 Hodgkin lymphoma (ICD-10 - C81.9 0) stabel - check on on scans needs cxr and labs 04/17/2025Well adult (ICD-10 - Z00.00)04/17/2025Low back pain, unspecified (ICD- 10 - M54.50) Plan Of Treatment Medication Medication Name Sig Start Date Stop Date Notes Adipex-P 37.5 MG 1 tablet before breakfast Orally Once a day 04/17/2025 Treatment Notes Assessment Notes Hodgkin lymphoma stabel - check on on scans needs cxr and labs Pending Test Test Name Order Date HEMOGLOBIN A1C (GLYCO) 04/17/2025 INSULIN, TOTAL 04/17/2025 LIPID PANEL (CHOL/TRIG/HDL/LDL) 04/17/20 25 URIC ACID 04/17/2025 LDH 04/17/2025 XR CHEST 2 V 04/17/2025 THYROID PANEL (T4/TSH/FREE T3) 5 PSA, SCREENING 04/17/2025 CMP (COMP MET SHANE) w/eGFR CKD-EPI 2024 CBC WITH DIFF 04/17/2025 Progress Notes * Atilio MARTINEZ SrDOB:[birth year] (64 yo M)Acc No.[id number]:04/17/2025 UNLOCKED PROGRESS NOTE Progress Note Patient: Atilio GIRALDO Sr :?Jonatan Ponce ([facility]), MDDOB:1960???Age: 64 Y???Sex:MaleDate:04/17/2025Phone:[phone]:[address] [place], [place]-[address]Check In:10:42 AM ESTCheck Out:11:15 AM EST Subjective: * Chief Complaints: * 1 . Diet check #3. * ROS: ???EENT:?hearing changes?denies.?visual changes?denies. non-healing mouth sores?denies.?swollen glands or neck lumps?denies.?hoarseness?denies.?sore throat?denies.?difficulty swallowing?denies.?nose bleeds?denies.?nasal congestion?denies.?ear ache?denies.?ear discharge denies.?ringing in ears?denies.?light sensitivity?denies.?eye pain?denies.?blurring?denies.?eye irritation?denies.?double vision?denies. vision loss?denies.?General/Constitutional:?Sweats:?Denies.?Fatigue?denies.?Sleep proble ms?denies.?Anorexia?denies.?Malaise?denies.?Weight loss?denies. Fatigue or Weakness?denies.?Fever or Chills?denies.?Cardiovascular:?Shortness of Breath w/lying flat?denies.?Lightheadedne ss/dizziness?denies.?Chest tightness/ heavy pressure?denies.?Swelling of legs, a nkles, or feet?denies.?Waking up with shortness of breath?denies.?Chest pain&#16 0;denies.?Palpitations?denies.?Weight gain?denies.?Respiratory:?Chronic or frequent cough?denies.?Coughing up blood&#1 60;denies.?Difficulty breathing?denies.?Productive cough?denies.?Snoring&#1 60;denies.?Shortness of breath that awakens from sleep (PND)?denies.?Chest pain? denies.?Sputum production?denies.?Wheezing?denies.?Musculoskeletal:?Joint pain?denies.?Joint Fluid?denies.?Backpain?denies.?Knee pain?denies.?Neck pain?denies.?Joint Stiffness?denies.?Muscle cramps?denies.?Weakness of muscles?denies.?Arthritis?denies.?Muscle aches?denies.?Pain in shoulder(s)?denies.?Swollen joints?denies.? * Medical History: C hest Pain, Covid-19 Virus, Infected Sebauceus Cyst, Bursitis of Right Knee, Pulmonary Embolism, DVT, Right Leg, Pneumonia, Hx of Hodkins Disease, Syncope, Vertigo, Concussion. * Surgical History: R ight Shoulder Surgery . * Hospitalization/Major Diagno stic Procedure: Nury barker Past Hospitalization. * Family History: F ather: , diagnosed with Heart Disease. M other: , diagnosed with Heart Disease, Arthritis. B rother(s): alive. S ister(s): alive. S on(s): alive. D alejandro(s): alive. 6 brother(s) , 2 sister(s) - healthy. 1 son(s) , 1 daughter(s) - healthy. . * Social History: ???Tobacco Use:?Tobacco Use/Smoking?Patient is a?former smoker ?When did you start smoking??06/27/1976 ?When did you stop smoking??06/27/1985 ?How long has it been since you last smoked? > 10 years * Medications: T aking Adipex-P(Phentermine HCl) 37.5 MG Tablet 1 tablet before breakfast Orally Once a day , Taking ALPRAZolam 1 mg Tablet TAKE 1/2 (ONE-HALF) TO 1 (ONE) TABLET BY MOUTH TWICE DAILY , Taking amLODIPine Besylate 10 mg Tablet TAKE 1 TABLET BY MOUTH ONCE DAILY , Taking Citalopram Hydrobromide 40 mg Tablet TAKE 1 TABLET BY MOUTH ONCE DAILY , Taking Clindamycin Phosphate 1 % Solution APPLY TO THE AFFECTED AREA(S) TWICE DAILY External , Taking Fenofibrate 145 mg Tablet TAKE 1 TABLET BY MOUTH EVERY DAY , Taking hydrOXYzine HCl 25 MG Tablet 1 tablet as needed Orally tid best is 1 in am and 2 at hs - 3/day max, Taking Ketoconazole 2 % Shampoo APPLY TO THE AFFECTED AREA(S) DAILY External , Taking Losartan Potassium 50 mg Tablet TAKE 1 TABLET BY MOUTH ONCE DAILY , Taking Metoprolol Tartrate 100 mg Tablet TAKE 1 TABLET BY MOUTH TWICE DAILY WITH FOOD , Taking rOPINIRole HCl 0.5 mg Tablet TAKE 1 TABLET BY MOUTH 1-3 HOURS BEFORE bedtime , Taking Simvastatin 20 mg Tablet TAKE 1 TABLET BY MOUTH IN THE EVENING , Taking Tamsulosin HCl 0.4 mg Capsule TAKE 1 CAPSULE BY MOUTH ONCE DAILY , Taking Triamcinolone Acetonide 0.1 % Cream 1 application Externally Twice a day , Taking Warfarin Sodium 7.5 mg Tablet TAKE 1 TABLET BY MOUTH ONCE DAILY , Taking Warfarin Sodium 5 MG Tablet 1 tablet Orally Once a day , Notes to Pharmacist: Coumadin Clinic, Medication List reviewed and reconciled with the patient * Allergies: C ontrast Dye: Hives. Objective: * Vitals: W t:252.4lbs, Ht: 69 in, BP:142/84mm Hg, BMI:37.27Index, Ht-cm: 175.26 cm, Wt-k.49 kg. * Examination: ???Physical Exam: ?GENERAL:?well developed, well nourished, in no acute distress.?HEAD:?normocephalic/atraumatic.?EYES:?pupils equal, round and reactive to light, conjunctivae and sclerae normal.?EARS:?no deformity or lesion of external ear, canals and TM appear normal bilaterally, TM's intact, not inflamed with normal light reflex, hearing grossly normal to conversational speech.?NOSE:?no deformity, discharge, inflammation, or lesions. ?MOUTH:?mucous membranes moist, normal oropharynx and posterior pharynx without lesions or exudates, tongue normal, dentition normal.?NECK:?neck supple, no masses or palpable cervical nodes, trachea midline, thyroid without nodules, masses, tenderness, or enlargement.?CHEST:?no chest wall deformity, no chest wall tenderness. ?LUNGS:?normal respiratory effort and clear to auscultation, no wheezes, rales, or rhonchi, good air exchange.?CARDIO:?regular rate and rhythm, normal S1 and S2, nor murmur, rub, or gallop.?PULSES:?normal capillary refill.?ABDOMEN:?soft, non-distended, non-tender, no masses.?MUSCULOSKELETAL:?no deformity or scoliosis noted, normal range of motion, joints normal, no erythema, edema, effusion, or ecchymosis.?EXTREMITY:?no clubbing, cyanosis, edema, or deformity withnormal ROM in both upper and lower bilateral extremities.?NEUROLOGIC:?grossly normal.?SKIN:?no rashes, ulcerations, or suspicious lesions.?LYMPH NODES:?no cervical adenopathy, nodes normal.?MENTAL STATUS:?alert and oriented x3, normal mood and affect.? Assessment: * Assessment: 1.?Hodgkin lymphoma - C81.90 (Primary)???2.?Well adult - Z00.00???3.?Low back pain, unspecified - M54.50??? Plan: * Treatment: Notes: stabel - check on on scans needs cxr and labs??2.?Well adult?LAB: HEMOGLOBIN A1C (GLYCO) ?LAB: INSULIN, TOTAL ?LAB: LIPID PANEL (CHOL/TRIG/HDL/LDL) ?LAB: URIC ACID ?LAB: LDH ?LAB: THYROID PANEL (T4/TSH/FREE T3) ?LAB: PSA, SCREENING ?LAB: CMP (COMP MET SHANE) w/eGFR CKD-EPI ?LAB: CBC WITH DIFF ?Imaging: XR CHEST 2 V3.?Low back pain, unspecified? Refill Adipex-P Tablet, 37.5 MG, 1 tablet before breakfast, Orally, Once a day, 30.?? * Preventive Medicine: ??Screenings/Counseling:?BMI ACTION PLAN?Above Normal BMI Follow-up?Dietary management education, guidance, and counseling * * Electronic signature of Prashanth Ponce MD, [id number] on 04/18/2025 at 10:49 AM EDT Sign off status: PendingVisit Status:?CHK (Check Out) * Provider: Nury Ponce ([facility])MD Date: Generated for Printing/Faxing/eTransmitting on:?04/18/2025 10:49 AM EDT History and Physical Notes * Examination CategorySub-CategoryDetailNotesCategory NotesPhysical ExamGENERAL:well developed, well nourished, in no acute distressHEAD:normocephalic/atraumatic EYES:pupils equal, round and reactive to light, conjunctivae and sclerae normal EARS:no deformity or lesion of external ear, canals and TM appear normal bilaterally, TM's intact, not inflamed with normal light reflex, hearing grossly normal to conversational speechNOSE:no deformity, discharge, inflammation, or lesionsMOUTH:mucous membranes moist, normal oropharynx and posterior pharynx without lesions or exudates, tonguenormal, dentition normalNECK:neck supple, no masses or palpable cervical nodes, trachea midline, thyroid without nodules, masses, tenderness, or enlargementCHEST:no chest wall deformity, no chest wall tendernessLUNGS:normal respiratory effort and clear to auscultation, no wheezes, rales, or rhonchi, good air exchangeCARDIO:regular rate and rhythm, normal S1 and S2, nor murmur, rub, or gallopPULSES:normal capillary refillABDOMEN:soft, non-distended, non-tender, no massesRECTAL:MUSCULOSKELETAL:no deformity or scoliosis noted, normal range of motion, joints normal, no erythema, edema, effusion, or ecchymosisEXTREMITY:no clubbing, cyanosis, edema, or deformity with normal ROM in both upper and lower bilateral extremitiesNEUROLOGIC:grossly normalSKIN:no rashes, ulcerations, or suspicious lesionsLYMPH NODES:no cervical adenopathy, nodes normalMENTAL STATUS:alert and oriented x3, normal mood and affect
--- OUTSIDE RECORDS SUMMARY | 2025-04-18 10:50 | XMS_ITS | Patient Health Record ---
Author Organization [facility] in [place] Address [address] [place] [address] Care Team Providers Care Welding Foreman Name Role Phone Prashanth Ponce Primary Care Provider [phone] Zelda Servin Unavailable [phone] Allergies Allergen (clinical drug ingredient) Drug/Non Drug Allergy documented on EMR Reaction Allergy Type Onset Date Status Information temporarily unavailable Contrast Dye (uncoded) Hives Allergy Active Reason For Referral No Information Medications Medication SIG (Take, Route, Frequency, Duration) Notes Start Date End Date Status Adipex-P 37.5 MG 1 tablet before breakfast Orall y Once a day 5ActiveKetoconazole 2 %APPLY TO THE AFFECTED AREA(S) DAILY External; Duration: 30 daysActivehydrOXYzine HCl 25 MG 1 tablet as needed Orally tid; Duration: 10 days best is 1 in am and 2 at hs - 3/day max 4ActiveMetoprolol Tartrate 100 mgTAKE 1 TABLET BY MOUTH TWICE DAILY WITH FOOD; Duration: 30ActiveLosartan Potassium 50 mgTAKE 1 TABLET BY MOUTH ONCE DAILY; Duration: 30ActiveSimvastatin 20 mgTAKE 1 TABLET BY MOUTH IN THE EVENING; Duration: 30 daysActiverOPINIRole HCl 0.5 mgTAKE 1 TABLET BY MOUTH 1-3 HOURS BEFORE bedtime; Duration: 30ActiveamLODIPine Besylate 10 mgTAKE 1 TABLET BY MOUTH ONCE DAILY; Duration: 30ActiveTriamcinolone Acetonide 0.1 %1 application Externally Twice a day; Duration: 4ActiveALPRAZolam 1 mgTAKE 1/2 (ONE-HALF) TO 1 (ONE) TABLET BY MOUTH TWICE DAILY; Duration: 5Active Tamsulosin HCl 0.4 mgTAKE 1 CAPSULE BY MOUTH ONCE DAILY; Duration: 90Active Citalopram Hydrobromide 40 mgTAKE 1 TABLET BY MOUTH ONCE DAILY; Duration: 90 ActiveWarfarin Sodium 7.5 mgTAKE 1 TABLET BY MOUTH ONCE DAILY; Duration: 30 ActiveFenofibrate 145 mgTAKE 1 TABLET BY MOUTH EVERY DAY; Duration: 30Active Clindamycin Phosphate 1 %APPLY TO THE AFFECTED AREA(S) TWICE DAILY External; Duration: 30 daysActiveWarfarin Sodium 5 MG1 tablet Orally Once a day; Duration: 30 daysCoumadin ClinicActive Immunizations Vaccine Route Administration Date Status Comme nts Flu, Fluarix (36309) 6 mos and older, single-dose syringe (2416-7215) IM Intramuscular 05/10/2024 Administered Flu, Flucelvax () (19260) 6 mos +, single-dose syringeIM Intramuscular 06/08/2023dministered Social History Tobacco Use: Social History Observation Description Date Details (start date - stop date) Former Smoker 06/27/1976 - 06/27/1985 Tobacco Use/Smoking Question Answer Notes Patient is a former smoker When did you start smoking?06/27/1976When did you stop smoking?06/27/1985How long has it been since you last smoked?> 10 yearsAlcohol Screen (Audit-C) Question Answer Notes Did you have a drink containing alcohol in the p ast year? No [id number]KJR-N (Standard) Question Answer Notes Did you have a drink containing alcohol in the p ast year? No Lesmwn4ZnzpzngdrznfarIllvnubu Problems Problem Type SNOMED Code ICD Code Onset Dates Problem Status W/U Status Risk Notes Problem Information temporarily unavaila ble Essential (primary) hypertension (I10) ActiveconfirmedProblemInformation temporarily unavailableObstructive sleep apnea (adult) (pediatric) (G47.33)ActiveconfirmedProblemInformation temporarily unavailableAnxiety disorder, unspecified (F41.9)ActiveconfirmedProblem Information temporarily unavailableMigraine, unspecified, intractable, without status migrainosus (G43.919)ActiveconfirmedProblemInformation temporarily unavailableSpondylosis without myelopathy or radiculopathy, cervical region (M47.812)ActiveconfirmedProblemInformation temporarily unavailableRestless leg (G25.81)ActiveconfirmedProblemInformation temporarily unavailableWell adult (Z00.00)ActiveconfirmedProblemInformation temporarily unavailableLeft hip pain (M25.552)ActiveconfirmedProblemInformation temporarily unavailableLeft elbow pain (M25.522)ActiveconfirmedProblemInformation temporarily unavailableHodgkin lymphoma (C81.90)ActiveconfirmedProblemInformation temporarily unavailableBenign prostatic hyperplasia without lower urinary tract symptoms (N40.0)Active confirmedProblemInformation temporarily unavailableOther hyperlipidemia (E78.49) ActiveconfirmedProblemInformation temporarily unavailableLow back pain, unspecified (M54.50)Activeconfirmed Vital Signs Blood pressure diastolic 84 mm Hg 04/17/2025 Fqcanu97 in04/17/2025lood pressure mm Hg04/17/20258809Azmtqd664.4 lbs 04/17/2025BMI37.27 kg/m204/17/2025 Encounters Encounter Location Date Provider Diagnosis [address] [address] 07/24/2024 Prashanth Hoy Essential (primary) hypertension I10 and Anxiety disorder, unspecified F41.[address] [address] 08/26/2024 Prashanth Hoy Low back pain, unspecified M54.[address] [address] 09/26/2024 Prashanth Hoy Spondylosis without myelopathy or radiculopathy, cervical region M47.[address] [address] 02/11/2025 Prashanth Hoy Low back pain, unspecified M54.[address] [address] 03/18/2025 Prashanth Hoy Low back pain, unspecified M54.[address] [address] 04/17/2025 Prashanth Hoy Hodgkin lymphoma C81.90 ; Well adult Z00.00 and Low back pain, unspecified M54.50 [facility] [address] [facility] [place] [address] 05/08/2024 Prashanth Robertsy Essential (primary) hypertension I10 and Hodgkin lymphoma C81.90 [facility] [address] [facility] [place] [address] 05/10/2024 Prashanth Ponce Encounter for immunization Z23 [facility] [address] [facility] [place] [address] 04/22/2024 Zelda Malathi Anxiety disorder, unspecified F41.9 [facility] [address] [facility] [place] [address] 05/28/2024 Prashanth Ponce Anxiety disorder, unspecified F41.9 [facility] [address] [facility] [place] [address] 06/17/2024 Prashanth Hoy [facility] [facility] [place] [address] 06/27/2024Doug HoyAnxiety disorder, unspecified F41.9[facility] [facility] [place] [address]/11/2024Doug Hoy Spondylosis without myelopathy or radiculopathy, cervical region M47.812[facility] [facility] [place] [address]/ [facility]oyB[facility] [facility] [place] [address]/10/2024Doug HoySpondylosis without myelopathy or radiculopathy, cervical region M47.812[facility] [place] [address]/12/2024Doug HoyWell adult Z00.00 and Spondylosis without myelopathy or radiculopathy, cervical region M47.812[facility] [facility] [place] [address]/11/2024Doug Hoy Spondylosis without myelopathy or radiculopathy, cervical region M47.812[facility] [place] [address]/09/2025 Prashanth HoySpondylosis without myelopathy or radiculopathy, cervical region M47.812 [facility] [place] [address] 04/07/2025Doug HoySpondylosis without myelopathy or radiculopathy, cervical region M47.812 Assessments Encounter Date Diagnosis (ICD Code) Assessment Notes Treatment Notes Treatment Clinical Notes Section Notes 05/08/2024 Essential (primary) hypertension (ICD-10 - I10) 05/08/2024Hodgkin lymphoma (ICD-10 - C81.90)05/10/2024Encounter for immunization (ICD-10 - Z23)07/24/2024Essential (primary) hypertension (ICD-10 - I10) 07/24/2024nxiety disorder, unspecified (ICD-10 - F41.9)08/26/2024Low back pain, unspecified (ICD-10 - M54.50)will rtke more consistent adn try again09/26/2024 Spondylosis without myelopathy or radiculopathy, cervical region (ICD-10 - M47.812)02/11/2025Low back pain, unspecified (ICD-10 - M54.50)03/18/2025Low back pain, unspecified (ICD-10 - M54.50)04/17/2025Hodgkin lymphoma (ICD-10 - C81.90) stabel - check on on scans needs cxr and labs 04/17/2025Well adult (ICD-10 - Z00.00)04/22/2024nxiety disorder, unspecified (ICD-10 - F41.9)05/28/2024nxiety disorder, unspecified (ICD-10 - F41.9) 06/27/2024nxiety disorder, unspecified (ICD-10 - F41.9)10/29/2024Spondylosis without myelopathy or radiculopathy, cervical region (ICD-10 - M47.812) 11/28/2024Spondylosis without myelopathy or radiculopathy, cervical region (ICD- 10 - M47.812)12/30/2024Well adult (ICD-10 - Z00.00)01/29/2025Spondylosis without myelopathy or radiculopathy, cervical region (ICD-10 - M47.812)03/04/2025 Spondylosis without myelopathy or radiculopathy, cervical region (ICD-10 - M47.812)04/07/2025Spondylosis without myelopathy or radiculopathy, cervical region (ICD-10 - M47.812)12/30/2024Spondylosis without myelopathy or radiculopathy, cervical region (ICD-10 - M47.812)04/17/2025Low back pain, unspecified (ICD-10 - M54.50) Plan Of Treatment Pending Test Test Name Order Date MRI : Lumbar with Contrast 01/10/2023 CMP (COMPLETE METABOLIC PANEL) HEMOGLOBIN A1C (GLYCO) 08/24/2023 HEMOGLOBIN A1C (GLYCO) 04/17/2025 INSULIN, TOTAL 04/17/2025 LIPID PANEL (CHOL/TRIG/HDL/LDL) 04/17/20 25 LIPID PANEL (CHOL/TRIG/HDL/LDL) 08/24/19 24 CBC WITH DIFF 08/24/2023 URIC ACID 04/17/2025 VITAMIN D, 25 LEVEL (TOTAL) 08/24/2023 Insulin Level 08/24/2023 COMPREHENSIVE METABOLIC PROFILE WITH GFR 08/22/2023 OCCULT BLOOD, FECAL, IMMUNOASSAY 024 CBC W/AUTO DIFF 08/22/2023 STOOL OCCULT BLOOD 08/24/2023 XR Elbow 3 Views Left 03/03/2023 XR Hip 2-3 Views Left 03/03/2023 CBC AUTO DIFF 05/08/2024 LDH 04/17/2025 MRI LSPINE WO CON 12/21/2022 MRI LSPINE WO W CON 02/23/2023 XR CHEST 2 V 04/17/2025 XR CHEST 2 V 05/08/2024 XR KNEE LT 3V 03/03/2023 THYROID PANEL (T4/TSH/FREE T3) THYROID PANEL (T4/TSH/FREE T3) 4 PSA, SCREENING 08/22/2023 PSA, SCREENING 04/17/2025 Lipid Panel 08/22/2023 CMP (COMP MET SHANE) w/eGFR CKD-EPI 2024 CBC WITH DIFF 04/17/2025 Insurance Providers Payer Name Payer Address Payer Phone Subscriber Number Group Number Insured Name Patient Relationship to Insured Coverage Start Date Coverage End Date [employer] [address] [address] [place] [address] [phone] [id number] Hanane Bianchi Spouse - patient is the spouse of the insured 3 Medications Administered Medication Instructions Date of Administration Dosage Notes Ketorolac Tromethamine 360 mg Medical (General) History Medical History History ICD Code Chest Pain Covid-19 VirusInfected Sebauceus CystBursitis of Right KneePulmonary Embolism DVT, Right LegPneumoniaHx of Hodkins DiseaseSyncopeVertigoConcussionSurgical History Surgery Date(Month/Year) Right Shoulder Surgery
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
--- NOTE | 2025-04-18 10:55 | XR_ITS ---
The [address] [address] Patient Name: DRAKE MARTINEZ MRN: [id number] date: 1960 Sex: M Assigned Patient Location: [facility] Current Patient Location: LAB Accession/Order Number: [id number] Exam Date: 04/18/2025 10:58 Report Date: 04/18/2025 11:42 At the request of: CHOLO RUDD MD Procedure: XR chest 2V PA AND LATERAL CHEST: CLINICAL HISTORY: well adult exam. History of Hodgkin's disease COMPARISON: CT 06/10/2022 and plain films 11/06/2021 There is no developing consolidation, effusion or pneumothorax. The cardiac, hilar and mediastinal silhouettes are within normal limits. There is no vascular congestion. The visualized bony thorax is intact. There is subtle dextroscoliotic curvature and endplate spurring at the spine. XR/XR chest 2V IMPRESSION: NO ACUTE CARDIOPULMONARY ABNORMALITY. Impression dictated by: Quita Murphy M.D. 04/18/2025 11:42 AM Dictation Location: [place] [address] Electronically authenticated by: [id number] Y Date: 04/18/2025 11:42
== END 2025-04-18 10:45 | disposition home or self-care (01) ==
LOC: RAD 10:46
PROVIDERS: PCP Family Medicine; Visit Provider Family Medicine
DX: Z00.00 Encounter for general adult medical examination without abnormal findings (principal)
CPT/HCPCS: 71046

== ENCOUNTER 2025-04-24 09:27 | Outpatient (OUT) | payer OTHER, SELFPAY ==
--- OUTSIDE RECORDS SUMMARY | 2025-04-24 09:32 | XMS_ITS | CCD ---
Author Organization [facility] Care Team Providers Care Pusher Runner Name Role Phone FAWWAD, AVITIA H Attending [...] Unavailable MD Cholo Ponce Primary Care Provider [phone] MD Yaw Johnson Emergency Provider Yaw Johnson Attending Unavailable Yaw Johnson Admitting Unavailable Cholo Ponce Primary Care Unavailable Allergies Allergy ClassificationReported Allergen(s)Allergy TypeDate of OnsetReaction(s) Facility (1 source)Iodine (And Iodine Containting Drugs)Drug allergy (disorder)[facility]ository (2 sources)Iodinated Contrast Media; Translations: [Iodinated Contrast Media] Allergy to colnkjoes57-59-0154LtlceOllozqyjrMain [facility] Medications Current Medications MedicationDrug Class(es)DatesSig (Normalized)Sig (Original)ALPRAZolam 1 mg oral tablet (2 sources)BenzodiazepineStart: 11-17-2019 End: 90-39-9370nhxy 0.5 mg by mouth twice dailyAlprazolam Active 0.5 MG PO Twice daily 0 1 November 20, 2019 7:58am This is preadmission home medication. Please follow-up prescribers instructionscitalopram 40 mg oral tablet (1 source)Serotonin Reuptake InhibitorStart: 93-63-4900ghtj 1 tablet by mouth once dailyCitalopram (Celexa) 40 mg Tablet Active 40 MG PO Daily November 17, 2019 12:00amfenofibrate 145 mg oral tablet (1 source)Peroxisome Proliferator Receptor alpha AgonistStart: 20-98-3233fbwv 1 tablet by mouth once dailyFenofibrate Nanocrystallized (Tricor) 145 mg tablet Active 145 MG PO Daily November 17, 2019 12:00ammeclizine hydrochloride 25 mg oral tablet (1 source)AntiemeticStart: 36-49-9806muja 25 mg by mouth four times daily Meclizine Active 25 MG PO Four times daily November 17, 2019 12:00ammethocarbamol 750 mg oral tablet (1 source)Muscle RelaxantStart: 92-14-2081rsft 1 tablet by mouth every six hours Methocarbamol (Robaxin-750) 750 mg tablet Active 750 MG PO Q6H November 17, 2019 12:00ammetoprolol tartrate 100 mg oral tablet (2 sources)beta-Adrenergic BlockerStart: 11-17-2019 End: 35-98-5613okcj 1 tablet by mouth in the morningMetoprolol Tartrate (Lopressor) 100 mg Tablet Active 100 MG PO As Directed 0 November 20, 2019 7:58am T kobe half a tablet ( 50 mg ) in the morning and 1 tablet ( 100 mg ) in the eveningsimvastatin 20 mg oral tablet (1 source)HMG-CoA Reductase InhibitorStart: 09-35-0233vovh 20 mg by mouth once daily at bedtimeSimvastatin Active 20 MG PO Daily at bedtime November 17, 2019 12:00amtadalafil 20 mg oral tablet (1 source)Phosphodiesterase 5 InhibitorStart: 14-69-1116Qsxlexksj (Cialis) 20 mg Tablet Active 20 MG PO Q3D November 17, 2019 12:00amwarfarin sodium 1 mg oral tablet (1 source)Vitamin K AntagonistStart: 76-14-9501Hyebnjmg (Coumadin) 1 mg Tablet Active MG TABLET February 24, 2023 12:00am Completed/Discontinued Medications MedicationDrug Class(es)DatesSig (Normalized)Sig (Original)nabumetone 750 mg oral tablet (2 sources)Nonsteroidal Anti-inflammatory DrugStart: 11-17-2019 End: 69-88-5137nfyn 750 mg by mouth every twelve hoursNabumetone Discontinued 750 MG PO Q12H November 17, 2019 12:00am November 20, 2019 8:01ampredniSONE 20 mg oral tablet (1 source)Start: 11-17-2019 End: 69-96-3604Nvmrkqfsdu Discontinued TABLET November 17, 2019 12:00am November 17, 2019 8:46amrivaroxaban 20 mg oral tablet (2 sources)Factor Xa InhibitorStart: 11-19-2019 End: 35-59-7374yzqd 1 tablet by mouth once dailyRivaroxaban (Xarelto) 20 mg tablet Discontinued 20 MG PO Daily 30 November 19, 2019 12:00am February 24, 2023 1:37pm start after completion of dose pack (30 days) Problems Active Problems Problem ClassificationProblemDateDocumented DateEpisodic/ChronicAnxiety disorders (1 source)Anxiety disorder, unspecified; Translations: [ANXIETY DISORDER UNSPECIFIED]Onset: 28-54-5989XskasucHsuhwvh dysrhythmias (1 source)Bradycardia; Translations: [Bradycardia, unspecified]11-19-2019 EpisodicDisorders of lipid metabolism (2 sources)Hyperlipidemia, unspecified; Translations: [Hyperlipidemia]Onset: 367544-15-9438WhnmkytNjdjkxxdl hypertension (2 sources)Essential (primary) hypertension; Translations: [Hypertensive disorder]Onset: 986724-18-2365HxhxthtCse-Pjocupz`s lymphoma (4 sources)Non-Hodgkin lymphoma, unspecified, unspecified site; Translations: [NON-HODGKIN LYMPHOMA UNS UNS SITE]Onset: 97-27-2148VmrwedhQkmjf aftercare (5 sources)Encounter for therapeutic drug level monitoring; Translations: [ENC THERAPEUTC DRUG LEVL MONITORING]Onset: 26-54-3493CrzkvfboEgcji aftercare (1 source)long-term (current) use of anticoagulants; Translations: [PRISON CURRNT USE ANTICOAGULANTS]Onset: 39-02-2821MdwmxsvtYcnxy injuries and conditions due to external causes (1 source)Contusion of multiple sites; Translations: [Unspecified multiple injuries, initial encounter]31-30-5483NmyhkyjjYvjvv lower respiratory disease (1 source)Multiple nodules of lung; Translations: [Other nonspecific abnormal finding of lung field]14-49-4794AqduboecRkqou nutritional; endocrine; and metabolic disorders (1 source)Obesity; Translations: [Obesity, unspecified]80-29-4760TsesszbBqttu screening for suspected conditions (not mental disorders or infectious disease) (1 source)CT of chest abnormal; Translations: [Abnormal findings on diagnostic imaging of other specified body structures]04-18-1781DukxrvhIbiuqkwvn; thrombophlebitis and thromboembolism (5 sources)Acute embolism and thrombosis of unspecified deep veins of right lower extremity; Translations: [ACEMBO THROMB UNS DP VNS RT LW EXT]Onset: 00-37-7074NbbaacsqVdzqpbfog heart disease (1 source)Pulmonary hypertension; Translations: [Pulmonary hypertension, unspecified]26-10-1318TyvopfyHiddguzfg heart disease (2 sources)Other pulmonary embolism without acute cor pulmonale; Translations: [Pulmonary embolism]Onset: 912577-30-8022EmcvgxhhSdxukzr and strains (1 source)Low back strain; Translations: [Strain of muscle, fascia and tendon of lower back, initial encounter]28-07-2593FhlcinyaBqlzhmdxuij injury; contusion (1 source)Abrasion of hand; Translations: [Abrasion of unspecified hand, initial encounter]80-57-3484NbbsiylgDbnbfksgsifk (1 source)Abrasion of left hand, initial encounter; Translations: [Abrasion of left hand, initial encounter]Onset: 02-24-2023 Past or Other Problems Problem ClassificationProblemDateDocumented DateEpisodic/ChronicDeficiency and other anemia (1 source)Anemia, unspecified; Translations: [ANEMIA UNSPECIFIED]Onset: 25-52-5927CimkzyckVedspxfe mellitus without complication (1 source)Other abnormal glucose; Translations: [OTHER ABNORMAL GLUCOSE]Onset: 59-10-8157XwzphkpfQqffjfpchbo chest pain (4 sources)Chest pain, unspecified; Translations: [CHEST PAIN UNSPECIFIED]Onset: 95-23-1170NixsvnmePwijn gastrointestinal disorders (1 source)Dysphagia, unspecified; Translations: [DYSPHAGIA UNSPECIFIED]Onset: 96-46-0445DdjnztwaYzyxd screening for suspected conditions (not mental disorders or infectious disease) (1 source)Encounter for screening for malignant neoplasm of prostate; Translations: [ENC SCREEN MALIG NEOPLASM PROSTATE]Onset: 81-64-8205Clnzfnvp Results Test NameValueInterpretationReference RangeFacilityCT head/brain wo [facility] 67-38-9597DD head/brain [place] [facility] [place] [address] CT Scan Report Signed Patient: Atilio Bianchi MR#: [id number] [birth year] : 1960 Acct:[id number] Age/Sex: 62 / M ADM Date: 02/24/23 Loc: ER Room: Type: [facility] ER Attending Dr: Copies to: Yaw Johnson [...] Hoff Jr., PerfectoOPreet02/24/2023 2:28 PM Dictation Location: [place] [address] Transcribed By: [facility] 02/24/23 1428 Dictated By: Radames Hoff Jr, DO 02/24/23 1417 Signed By: 02/24/23 1428NoBarberton Citizens HospitalCT lumbar spine wo conon 02-25-2510QX lumbar spine [facility] [place] [address] [place] [address] CT Scan Report Signed Patient: Atilio Bianchi MR#: [id number] 78 : 1960 Acct:[id number] Age/Sex: 62 / M ADM Date: 02/24/23 Loc: ER Room: Type: [facility] ER Attending Dr: Copies to: Yaw Johnson [...] Hoff Jr., DPreetOPreet02/24/2023 2:31 PM Dictation Location: [facility] Transcribed By: PWS 02/24/23 1431 Dictated By: Radames Hoff Jr DO 02/24/23 1429 Signed By: 02/24/23 143[facility] HospitalECG 12 lead ECGon 02-24-2023 ECG 12 lead [facility]DAY[facility] [place] [address] Electrocardiograph Report Signed Patient: Atilio Bianchi MR#: [id number] [birth year] : 1960 Acct:[id number] Age/Sex: 62 / M ADM Date: 02/24/23 Loc: ER Room: Type: [facility] ER Attending Dr: Ordering Provider: [...] MUS Signed By Yaw Johnson MD 02/24/[address] [place], [place] [address]XR hand LT min 3V*on 14-69-9049ZO hand LT min 3V*[facility] [address] XRay Report Signed Patient: Atilio Bianchi MR#: [id number] [birth year] : 1960 Acct:[id number] Age/Sex: 62 / M ADM Date: 02/24/23 Loc: ER Room: Type: [facility] ER Attending Dr: Copies to: Yaw Johnson MD Ordering Provider: Yaw Johnson MD Date of Service: 02/24/23 XR/XR knee LT 4V*: bnvc ([id number]) XR/XR hand LT min 3V*: hgdf LEFT [...] Hoff Jr., D.OPreet02/24/2023 2:33 PM Dictation Location: [place] [address] Transcribed By: [facility] 02/24/23 1433 Dictated By: Radames Hoff Jr, DO 02/24/23 1431 Signed By: 02/24/23 [facility]CT [facility] CONon 06-10-2022 CT CHEST WO [...] Electronically authenticated by: MARIO WOODARD Date: 2022-06-10 15:42NormalThUC West Chester HospitalINSULINon 53-07-7215Flsvucq1.6 uIU/mLNormal2.6-24.9[facility] HospitalComment on above:Performed By: #### INSULIN #### [facility] [address] [address] [address] Branden Alvares AUTO DIFFon 50-47-3955ITCG #0.0 103/ulNormal0.0-0.1The [facility] HospitalComment on above:Performed By: #### CBC #### [facility] [address] [place] [address] Dr. Branden CamarilloBasophils/100 WBC (Bld)0.3 %Normal0.2-2.0[facility] Comment on above:Performed By: #### CBC #### [facility] [address] [address] [address] Branden Mcnulty #0.2 103/ulNormal0.0-0.7The [facility] HospitalComment on above: Performed By: #### CBC #### [facility] [address] [place] [address] Dr. Branden Ricardoosinophils/100 WBC (Bld)3.6 %Normal0.9-7.0[facility] Comment on above:Performed By: #### CBC #### [facility] [address] [place] [address] Dr. Branden Ricardorythrocyte distribution width (RBC) [Ratio]13.4 %Bkenhv80.0-15.0 [facility] HospitalComment on above:Performed By: #### CBC #### [facility] [address] [place] [address] Dr. Branden CamarilloHematocrit (Bld) [Volume fraction]40.9 %Critically low42.0-54.0 The [facility] HospitalComment on above:Performed By: #### CBC #### [facility] [address] [place] [address] Dr. Branden CamarilloHemoglobin (Bld) [Mass/Vol]14.0 g/eGHcznvw74.0-18.0The [facility] on above:Performed By: #### CBC #### [facility] [address] [place] [address] Dr. Branden Washington #0.02 10e3/ulNormal0.00-0.03The [facility] HospitalComment on above:Performed By: #### CBC #### [facility] [address] [place] [address] Dr. Branden Washington %0.3 %Normal0.0-0.5The [facility] HospitalComfresenius medical [facility] on above: Performed By: #### CBC #### [facility] [address] [place] [address] Dr. Branden Rousseau #2.0 103/ulNormal1.2-3.8The [facility] HospitalComment on above:Performed By: #### CBC #### [facility] [address] [place] [address] Dr. Branden Morrisseyhocytes/100 WBC (Bld)34.0 %Aqovsc72.5-60.0The [facility] HospitalComfresenius [facility] on above:Performed By: #### CBC #### [facility] [address] [place] [address] Dr. Branden CardozoUAL DIFF REQNONormalThe [facility] HospitalComment on above: Performed By: #### CBC #### [facility] [address] [place] [address] Dr. Branden Duvall (RBC) [Entitic mass]30.8 ohQrhwnh04.9-34.0The [facility] HospitalComment on above:Performed By: #### CBC #### [facility] [address] [place] [address] Dr. Branden Duvall (RBC) [Mass/Vol]34.2 g/zLIqktim56.9-35.2The [facility] HospitalComment on above:Performed By: #### CBC #### [facility] [address] [address] [address] Branden DuvallV (RBC) [Entitic vol]90.1 tJPacknx38.0-94.0The [facility] HospitalComment on above:Performed By: #### CBC #### [facility] [address] [place] [address] Dr. Branden Martinez #0.8 103/ulNormal0.3-0.8The [facility] HospitalComment on above:Performed By: #### CBC #### [facility] [address] [place] [address] Dr. Branden Gerardoocytes/100 WBC (Bld)14.2 %Critically high1.7-12.0The [facility] HospitalComment on above:Performed By: #### CBC #### [facility] [address] [place] [address] Dr. Branden Hernandez #2.7 103/ulNormal1.4-6.5The [facility] HospitalComment on above:Performed By: #### CBC #### [facility] [address] [place] [address] Dr. Branden Landersutrophils/100 WBC (Bld)47.6 %Zsljsv14.0-75.0The [facility] HospitalComment on above:Performed By: #### CBC #### [facility] [address] [place] [address] Dr. Branden Galdamezlet mean volume (Bld) [Entitic vol]9.3 fLCritically low 9.5-13.5The [facility] HospitalComment on above:Performed By: #### CBC #### [facility] [address] [place] [address] Dr. Branden CamarilloPLT272 103/dsBkxvxn516-457Nzq [facility] HospitalComment on above: Performed By: #### CBC #### [facility] [address] [place] [address] Dr. Branden CamarilloRBC4.54 106/ulCritically low4.70-6.10The [facility] HospitalComment on above:Performed By: #### CBC #### [facility] [address] [address] [address] Branden CamarilloWBC5.8 103/ulNormal4.0-11.0The [facility] Campusment on above: Performed By: #### CBC #### [facility] [address] [address] [address] Branden CamarilloFRZION THYROXINE INDEX T7on 42-39-3748KPF9.58Polcqm4.30-4.50The [facility] on above:Performed By: #### LIPID, T7, CMP, TSH #### [facility] [address] [address] [address] Branden CamarilloT3U34.0 %Kzmsqv64.0-40.0The [facility] on above: Performed By: #### LIPID, T7, CMP, TSH #### [facility] [address] [place] [address] Dr. Branden CamarilloT4 [Mass/Vol]6.50 ug/dLNormal4.50-12.10[facility] Comment on above:Performed By: #### LIPID, T7, CMP, TSH #### [facility] [address] [place] [address] Dr. Branden CamarilloGLYCOHEMOGLOBIN A1Con 87-20-5922PEN RECOMMENDATIONSEE BELOWNormal The [facility] HospitalComfresenius [facility] on above:Result Comment: ADA RECOMMENDED LIMIT 4.0 - 6.0 ADA THERAPEUTIC TARGET < 7.0 ACTION SUGGESTED > 7.0Performed By: #### A1C #### [facility] [address] [place] [address] Dr. Branden CamarilloGlucose [Mass/Vol]123 mg/dLNormalThe [facility] HospitalComfresen[facility] on above:Performed By: #### A1C #### [facility] [address] [place] [address] Dr. Branden CamarilloHbA1c (Bld) [Mass fraction]5.9 %Normal4.5-6.2The [facility] HospitalComfresen[facility] on above:Performed By: #### A1C #### [facility] [address] [address] [address] Branden Russell 61-44-9934Ydvb [Mass/Vol]67.0 ug/gXSctnqz38.0-175.0The [facility] HospitalComment on above:Performed By: #### PSASC, IRON #### [facility] [address] [address] [address] Branden Keith PROFILEon 67-95-4658QQCC-HDL RATIO NORMSEE BELOWNoCrystal Clinic Orthopedic CenterComment on above:Result Comment: 3.3 - 4.4 LOW RISK 4.4 - 7.1 AVERAGE RISK 7.1 - 11.0 MODERATE RISK >11.0 HIGH RISKPerformed By: #### LIPID, T7, CMP, TSH #### [facility] [address] [address] [address] Branden Dickersonesterol [Mass/Vol]195 mg/dLNormal<=200The [facility] Comment on above:Performed By: #### LIPID, T7, CMP, TSH #### [facility] [address] [address] [address] Branden Dickersonesterol in HDL [Mass/Vol]44 mg/xZUijtxn70-70Add [facility] HospitalComfresen[facility] on above:Performed By: #### LIPID, T7, CMP, TSH #### [facility] [address] [address] [address] Branden Dickersonesterol in LDL [Mass/Vol]118.2 mg/dLNoCrystal Clinic Orthopedic CenterComment on above:Performed By: #### LIPID, T7, CMP, TSH #### [facility] [address] [address] [address] Branden Abarca.total/Cholesterol in HDL [Mass ratio]4.4 {ratio} NormalThe [facility] HospitalComfresenius [facility] on above:Performed By: #### LIPID, T7, CMP, TSH #### [facility] [address] [address] [address] Branden Goins NORMAL> or = 60 mg/dl - LOW CARDIOVASCULAR RISK <40 mg/dl - HIGH CARDIOVASCULAR RISKMagruder Memorial Hospital on above:Performed By: #### LIPID, T7, CMP, TSH #### [facility] [address] [address] [address] Branden CamarilloLDL CALC NORMALSEE BELOWKettering Health – Soin Medical CenterComfresenius medical [facility] on above:Result Comment: <100 mg/dl OPTIMAL 100 - 129 mg/dl NEAR OR ABOVE OPTIMAL 130 - 159 mg/dl BORDERLINE HIGH 160 - 189 mg/dl HIGH >190 mg/dl VERY HIGH Performed By: #### LIPID, T7, CMP, TSH #### [facility] [address] [address] [address] Branden CamarilloTriglyceride [Mass/Vol]164 mg/dLCritically high<=150The [facility] on above:Performed By: #### LIPID, T7, CMP, TSH #### [facility] [address] [place] [address] Dr. Branden CamarilloVLDL CALC32.8 mg/dLNoCrystal Clinic Orthopedic CenterComfresenius medical [facility] on above: Performed By: #### LIPID, T7, CMP, TSH #### [facility] [address] [place] [address] Dr. Branden CamarilloPROFede 14(COMP METB)on 40-47-4391Vqksdwx [Mass/Vol]3.9 g/dLNormal 3.4-5.0The [facility] on above:Performed By: #### LIPID, T7, CMP, TSH #### [facility] [address] [place] [address] Dr. Branden CamarilloAlbumin/Globulin [Mass ratio]1.2 {ratio}NormalThe [facility] on above:Performed By: #### LIPID, T7, CMP, TSH #### [facility] [address] [address] [address] Branden Paz [Catalytic activity/Vol]44 U/LCritically bge86-529Xbi [facility] on above:Performed By: #### LIPID, T7, CMP, TSH #### [facility] [address] [address] [address] Branden Eisenberg [Catalytic activity/Vol]27 U/ERqsejv44-34Twm [facility] HospitalComment on above:Performed By: #### LIPID, T7, CMP, TSH #### [facility] [address] [address] [address] Branden CamarilloAnion gap [Moles/Vol]11.3 mmol/LNormalProm[facility]ica [facility] Comment on above:Performed By: #### LIPID, T7, CMP, TSH #### [facility] [address] [address] [address] Branden CamarilloAST [Catalytic activity/Vol]19 U/DBiynmf39-59Yfa [facility] HospitalComment on above:Performed By: #### LIPID, T7, CMP, TSH #### [facility] [address] [place] [address] Dr. Branden CamarilloBilirubin [Mass/Vol]0.5 mg/dLNormal0.2-1.0[facility] Comment on above:Performed By: #### LIPID, T7, CMP, TSH #### [facility] [address] [place] [address] Dr. Branden CamarilloCalcium [Mass/Vol]9.3 mg/dLNormal8.5-10.1[facility] Comment on above:Performed By: #### LIPID, T7, CMP, TSH #### [facility] [address] [place] [address] Dr. Branden CamarilloChloride [Moles/Vol]105 mmol/JHdzfmg55-772RayPromedica Fostoria Community Hospital Comment on above:Performed By: #### LIPID, T7, CMP, TSH #### [facility] [address] [place] [address] Dr. Branden CamarilloCO2 [Moles/Vol]29.7 mmol/GMtfjiz51.0-32.0[facility] Comment on above:Performed By: #### LIPID, T7, CMP, TSH #### [facility] [address] [place] [address] Dr. Branden CamarilloCreatinine [Mass/Vol]1.04 mg/dLNormal0.70-1.30The [facility] HospitalComment on above:Performed By: #### LIPID, T7, CMP, TSH #### [facility] [address] [address] [address] Branden RicardoGFR-AF BHUTANESE>60Normal>=60The [facility] Campusment on above:Performed By: #### LIPID, T7, CMP, TSH #### [facility] [address] [address] [address] Branden RicardoGFR-NON AF BHUTANESE>60Normal>=60The [facility] HospitalComment on above:Performed By: #### LIPID, T7, CMP, TSH #### [facility] [address] [address] [address] Branden CamarilloGlobulin (S) [Mass/Vol]3.2 g/dLNormalThe [facility] HospitalComment on above:Performed By: #### LIPID, T7, CMP, TSH #### [facility] [address] [place] [address] Dr. Branden CamarilloGlucose [Mass/Vol]98 mg/yVXuupxf01-118SvaPromedica Fostoria Community Hospital Comment on above:Performed By: #### LIPID, T7, CMP, TSH #### [facility] [address] [address] [address] Branden CamarilloPotassium [Moles/Vol]4.0 mmol/LNormal3.5-5.1[facility] Comment on above:Performed By: #### LIPID, T7, CMP, TSH #### [facility] [address] [address] [address] Branden CamarilloProtein [Mass/Vol]7.1 g/dLNormal6.4-8.2The [facility] Comment on above:Performed By: #### LIPID, T7, CMP, TSH #### [facility] [address] [place] [address] Dr. Branden CamarilloSodium [Moles/Vol]142 mmol/JAsfimy873-444CthPromedica Fostoria Community Hospital Comment on above:Performed By: #### LIPID, T7, CMP, TSH #### [facility] [address] [address] [address] Branden CamarilloUrea nitrogen [Mass/Vol]18.0 mg/dLNormal7.0-18.0The [facility] HospitalComment on above:Performed By: #### LIPID, T7, CMP, TSH #### [facility] [address] [address] [address] Branden Briones nitrogen/Creatinine [Mass ratio]17.3 mg/mgNoalThe [facility] HospitalComment on above:Performed By: #### LIPID, T7, CMP, TSH #### [facility] [address] [address] [address] Branden Ochoa 53-83-4620VRW5.242 uIU/mLNormal0.358-3.740The [facility] HospitalComment on above:Performed By: #### LIPID, T7, CMP, TSH #### [facility] [address] [place] [address] Dr. Branden Hollowaysiyolie Referralon 85-54-2704Jaegrxgsr Referral [id number]#1.00CD:127[facility] Vital Signs Date TimeVital SignValuePerforming FypfqfogsAhidteah72-53-0708 15:00-0400 Diastolic blood plzaqurl42 mm[Hg]MD Cholo Ponce Work Phone: [phone] [address]09-01-2023 15:00-0400 Heart rate51 /minMD Cholo Ponce Work Phone: [phone]09-01-2023 15:00-0400 Respiratory rate20 /minMD Cholo Ponce Work Phone: [phone]09-01-2023 15:00-0400 SaO2% (BldA) [Mass fraction]97 %MD Cholo Ponce Work Phone: [phone]09-01-2023 15:00-0400 Systolic blood afqowulh418 mm[Hg]MD Cholo Ponce Work Phone: [phone]09-01-2023 13:35-0400 Body zgnjuq554.26 cmMD Cholo Ponce Work Phone: [facility]09-01-2023 13:35-0400 Body odeoucpfuwp54.2 [degF]MD Cholo Ponce Work Phone: [facility]09-01-2023 13:350400 Body .3 kg Cholo Ponce Work Phone: [facility] Encounters Encounter DateEncounter TypeCare ProviderFacilityStart: 02-24-2023 End: 64-96-3655Acystgmmt department patient visitJoadi Rivas SmithFacility:[facility] Centertart: 02-24-2023 End: 76-60-4793Lwdtxykyy department patient visit Cholo Ponce Work Phone: [facility] Work Phone: Start: 10-24-2022 End: 30-92-1916rhioggstogLNQMMN H FAWWADFacility:W5Skwkx: 09-26-2022 End: 68-90-0974xrajiscyshGIPIBZ H FAWWADFacility:G0Ucxdt: 08-24-2022 End: 41-13-1864eeoudniteyYBXLRL H FAWWADFacility:D1Resvw: 07-27-2022 End: 99-02-9283cawwbilznwPGHPYR H FAWWADFacility:S3Oiuhw: 06-27-2022 End: 17-16-4689euxribvjqfQRVAJB H FAWWADFacility:J3Blhqn: 06-10-2022 End: 43-25-1196btbfqjusinOT CHOLO HOY .Facility:I3Rdfkt: 05-26-2022 End: 04-55-5645zjaqmhthqsYLRPGM H FAWWADFacility:A1Ddzot: 05-25-2022 End: 82-21-8486kynpqmukcwGU CHOLO HOY .Facility:W1Oekts: 04-26-2022 End: 66-62-1128jxtrhwpsraJWIOAX H FAWWADFacility:O7Ajujh: 03-27-2022 End: 17-08-2222fffjckgxkgFHZEOB H FAWWADFacility:L7Uhixl: 02-24-2022 End: 29-91-4699yjgpndptpeEJOOOT FAWWADFacility:M3Earcx: 01-24-2022 End: 20-84-2402nmvtvwqrhiHHFYGM H FAWWADFacility:E6Tyopk: 12-24-2021 End: 98-26-5830rswpjgudwwRGAGTS H FAWWADFacility:H1 Procedures DateProcedureProcedure DetailPerforming ClinicianStart: 85-26-6221UZ of head without contrastMD Cholo Hoy Work Phone: [phone]: 22-88-3725PL of lumbar spine without contrastMD Cholo Hoy Work Phone: [phone]: 29-02-6942Nieap X-ray of left handMD Cholo Hoy Work Phone: Start: 43-73-4248Yqbnrwivdv examination of kneeMD Cholo Hoy Work Phone: Start: 15-41-1185IPY screeningGEISINGER [facility] FAWWADComment on above:Performed By: #### PSASC, IRON #### [facility] [address] [place] [address] Dr. Branden Camarillo Plan of Treatment DateCare ActivityDetailAuthorPatient EducationSkin Abrasions Low Back Pain ED Muscle Strain EDFire[facility] Work Phone: Patient referralFirelands [facility] Work Phone: Immunizations Immunization DateImmunizationNotesCare RayfybqzJyuyzuuj45-71-6143ydrgryx toxoid, reduced diphtheria toxoid, and acellular pertussis vaccine, adsorbedMD Cholo Hoy Work Phone: [facility] Payers DatePayer CategoryPayerPolicy [id number] 2.16.840.1.038244.3.57[id number] 2.16.840.1.594209.3.57[id number] 2.16.840.1.902920.3.57[id number] 2.16.840.1.750810.3.57[id number] 2.16.840.1.163102.3.57[id number] 2.840.1.693463.3.57[id number] 2.840.1.173227.3.579.2.9[id number] 2.16.840.1.214008.3.57[id number] 2.840.1.235770.3.57[id number] 2.840.1.558623.3.57[id number] 2.840.1.294490.3.579.[id number] 2.840.1.884810.3.57[id number] 2.840.1.740254.3.57[id number] / [id number] 5056q486-9556-266z-1687-[id number] 2.84.1.605657.3.579.2.531 Social History DateTypeDetailFacilityStart: 26-66-5514Dajiosm smoking status NHISNever smoked tobacco (finding)[facility] Cent[facility]art: 84-85-1308Pxv Assigned [facility] Evaluation note Note Date & TypeNoteFacilityEvaluation noteNo assessment information available [facility] Work Phone: Hospital Discharge instructions Note Date & TypeNoteFacilityHospital Discharge instructions Additional Instructions Tylenol every 4 hours for pain Follow-up with your private physician if not improved Return if symptoms are worseFirelands Regional Medical Center [facility]tr Work Phone: Summary Purpose [...] section and content) DATE CREATED AUTHOR 05/18/2021 [facility] DATE CREATED AUTHOR AUTHOR'S ORGANIZ ATION 12/02/2022 [facility] DATE CREATED AUTHOR AUTHOR'S ORGANIZ ATION 03/30/2023 [facility] Care Teams (unrecognized sec tion and [...] BE BASED ON THE PRIMARY CLINICAL RECORDS. [facility] [employer] [facility]. provides no warranty or guarantee of the accuracy or completeness of information in this document.
[2025-04-24 10:31] LABS: Hematocrit 40.8 % (42.0-54.0); Hemoglobin 13.8 g/dL (14.0-18.0); Immature Granulocytes Abs Auto 0.01 10^3/uL (0.00-0.03); Immature Granulocytes Pct Auto 0.2 % (0.0-0.5); Lymphocytes Absolute Auto 1.5 10^3/uL (1.2-3.8); Mean Corpuscular HGB Conc 33.8 g/dL (29.9-35.2); Mean Corpuscular Hemoglobin 30.9 pg (25.9-34.0); Mean Corpuscular Volume 91.3 fL (80.0-94.0); Platelet Count 296 10^3/uL (150-450); Red Blood Count 4.47 10^6/uL (4.70-6.10); White Blood Count 4.5 10^3/uL (4.0-11.0)
[2025-04-24 10:33] LABS: Alanine Aminotransferase 25 U/L (16-63); Albumin Globulin Ratio 1.2; Albumin Level 3.5 g/dL (3.4-5.0); Alkaline Phosphatase 40 U/L (46-116); Anion Gap 11.9; Aspartate Amino Transferase 16 U/L (15-37); Blood Urea Nitrogen 19.0 mg/dL (7.0-18.0); Calcium 8.8 mg/dL (8.5-10.1); Carbon Dioxide 29.8 mmol/L (21.0-32.0); Chloride 107 mmol/L (98-107); Cholesterol 189 mg/dL (<=200); Estimated GFR (African America >60 (>=60 mL/min/1.73m^2); Estimated GFR (Non-African Ame >60 (>=60 mL/min/1.73m^2); Free T3 2.02 pg/mL (2.18-3.98); Globulin 2.9 g/dL; Glucose 113 mg/dL (74-106); HDL Cholesterol 46 mg/dL (40-60); Potassium 3.7 mmol/L (3.5-5.1); Sodium 145 mmol/L (136-145); Thyroid Stimulating Hormone 1.835 uIU/mL (0.358-3.740); Total Protein 6.4 g/dL (6.4-8.2); Triglycerides 92 mg/dL (<=150); Uric Acid 4.1 mg/dL (3.5-7.2); VLDL CHOLESTEROL 18.4 mg/dL
== END 2025-04-24 09:28 | disposition home or self-care (01) ==
LOC: LAB 09:27
PROVIDERS: PCP Family Medicine; Visit Provider Family Medicine
DX: Z00.00 Encounter for general adult medical examination without abnormal findings (principal); Z12.5 Encounter for screening for malignant neoplasm of prostate
CPT/HCPCS: 36415; 80053; 80061; 83036; 83525; 83615; 84436; 84443; 84481; 84550; 85025; G0103